=== PATIENT | male | born 1980 | race Caucasian/White ===

== ENCOUNTER 2016-09-23 12:24 | Outpatient (CLI) | payer OTHER ==
[~2016-09-23] VITALS: Ht 175.3 cm; Wt 70.0 kg
[~2016-09-23 12:24] MED LIST: /MOXI40TA OR; ACET500C OR; ACET65TA OR; ASACOL OR; CIPR25SS OR; CIPR500T4 OR; CLIN300C OR; COLA100C2 OR; COLA100C2 PO; DIFL50TA OR; EC-N500T OR; FERR325T OR; FLAG500T OR; PERC5TAB8 OR; PERC5TAB8 PO; PERC7.5T8 OR; PERC7.5T8 PO; PRED20TA OR; TETR250C OR; VITAMIN C PO; diphenhydrAMINE 25 MG CAP PO SCH
[2016-09-23] MEDS ORDERED: NS 1,000 ML IV SCH (12:45)
[2016-09-23] MEDS ORDERED: inFLIXimab INJECTION 400 MG in NS 210 ML IV ONE (13:00)
== END 2016-09-23 15:25 | disposition home or self-care (01) ==
LOC: M INFU 12:24
PROVIDERS: ATTEND Internal Medicine Gastroenterology
DX: K50.80 Crohn's disease of both small and large intestine without complications (principal); F17.200 Nicotine dependence, unspecified, uncomplicated; Z88.5 Allergy status to narcotic agent; Z88.8 Allergy status to other drugs, medicaments and biological substances
CPT/HCPCS: 96413; 96415; J1745

== ENCOUNTER 2016-11-13 10:53 | Outpatient (CLI) | payer OTHER ==
[~2016-11-13 10:53] MED LIST changes: -diphenhydrAMINE 25 MG CAP PO SCH
[2016-11-13] MEDS ORDERED: NS 1,000 ML IV SCH (11:00)
[2016-11-13] MEDS ORDERED: diphenhydrAMINE 25 MG CAP PO ONE (11:15)
[2016-11-13] MEDS ORDERED: inFLIXimab INJECTION 400 MG in NS 210 ML IV ONE (12:00)
== END 2016-11-13 13:45 | disposition home or self-care (01) ==
LOC: M INFU 10:53
PROVIDERS: ATTEND Internal Medicine Gastroenterology
DX: K50.00 Crohn's disease of small intestine without complications (principal)
CPT/HCPCS: 96413; 96415; J1745

== ENCOUNTER 2017-01-15 12:18 | Outpatient (CLI) | payer OTHER ==
[~2017-01-15 12:18] MED LIST changes: +diphenhydrAMINE 25 MG CAP PO SCH
[2017-01-15] MEDS ORDERED: NS 1,000 ML IV SCH (12:30)
[2017-01-15] MEDS ORDERED: inFLIXimab INJECTION 400 MG in NS 210 ML IV ONE (13:00)
== END 2017-01-15 15:00 | disposition home or self-care (01) ==
LOC: M INFU 12:18
PROVIDERS: ATTEND Internal Medicine Gastroenterology
DX: K50.80 Crohn's disease of both small and large intestine without complications (principal); Z72.0 Tobacco use; Z88.5 Allergy status to narcotic agent; Z88.3 Allergy status to other anti-infective agents
CPT/HCPCS: 96413; 96415; J1745

== ENCOUNTER → 2017-01-21 | Outpatient (REF) | payer OTHER ==
[~2017-01-21] MED LIST changes: -diphenhydrAMINE 25 MG CAP PO SCH
[2017-01-21 16:05] LABS: BASO % 0.2 % (0.0-1.0); EOS # 0.1 K/mm3 (0.0-0.50); EOS % 1.5 % (0.0-3.0); LYMPH # 2.7 K/mm3 (1.5-4.5); LYMPH % 25.5 % (24.0-44.0); MEAN CORPUSCULAR HEMOGLOBIN 31.5 pg (27.0-33.0); MEAN CORPUSCULAR VOLUME 95.4 fl (80.0-96.0); MONO # 0.6 K/mm3 (0.0-0.8); MONO % 6.4 % (0.0-5.0); NEUTROPHILS # 6.1 K/mm3 (1.8-7.7); NEUTROPHILS % 64.2 % (36.0-66.0); RED CELL DISTRIBUTION WIDTH 13.4 % (11.5-14.5); WHITE BLOOD COUNT 9.5 K/mm3 (4.0-10.0)
[2017-01-21 16:08] LABS: ALBUMIN 3.9 GM/DL (3.2-5.2); ALBUMIN/GLOBULIN RATIO 1.08 (1.00-1.93); ALKALINE PHOSPHATASE 109 U/L (45-117); ALT/SGPT 33 U/L (12-78); AST/SGOT 22 U/L (15-37); BILIRUBIN,DIRECT 0.1 MG/DL (0.0-0.2); BILIRUBIN,TOTAL 0.5 MG/DL (0.2-1.0); BLOOD UREA NITROGEN 13 MG/DL (7-18); CREATININE FOR GFR 1.03 MG/DL (0.70-1.30); GLOMERULAR FILTRATION RATE > 60.0 (>60); TOTAL PROTEIN 7.5 GM/DL (6.4-8.2)
== END ==
LOC: M LABDRWSH 15:32
PROVIDERS: ATTEND Internal Medicine Gastroenterology
DX: K50.80 Crohn's disease of both small and large intestine without complications (principal)

== ENCOUNTER 2017-03-11 12:29 | Outpatient (CLI) | payer OTHER ==
[~2017-03-11 12:29] MED LIST changes: +diphenhydrAMINE 25 MG CAP PO SCH
[2017-03-11] MEDS ORDERED: NS 1,000 ML IV SCH (13:30)
[2017-03-11] MEDS ORDERED: inFLIXimab INJECTION 400 MG in NS 210 ML IV ONE (13:30)
== END 2017-03-11 15:15 | disposition home or self-care (01) ==
LOC: M INFU 12:29
PROVIDERS: ATTEND Internal Medicine Gastroenterology
DX: K50.80 Crohn's disease of both small and large intestine without complications (principal); F17.210 Nicotine dependence, cigarettes, uncomplicated; Z88.5 Allergy status to narcotic agent

== ENCOUNTER 2017-05-07 07:05 | Outpatient (CLI) | payer OTHER ==
[~2017-05-07] VITALS: Ht 175.3 cm; Wt 64.0 kg
[2017-05-07] MEDS ORDERED: NS 1,000 ML IV SCH (08:00)
[2017-05-07] MEDS ORDERED: inFLIXimab INJECTION 400 MG in NS 210 ML IV ONE (08:00)
== END 2017-05-07 09:45 | disposition home or self-care (01) ==
LOC: M INFU 07:05
PROVIDERS: ATTEND Internal Medicine Gastroenterology
DX: K50.80 Crohn's disease of both small and large intestine without complications (principal); Z72.0 Tobacco use; Z88.5 Allergy status to narcotic agent
CPT/HCPCS: 96413; 96415; J1745

== ENCOUNTER → 2017-06-11 | Outpatient (CLI) | payer OTHER ==
[~2017-06-11] MED LIST changes: +E-Z-GAS II EFFERVESCENT PACKET (SODIUM BICARB./CITRIC ACID/SIMETHICONE) As Ordered ONE; +E-Z-HD 98% w/w 340GM SUSP BTL As Ordered ONE; +E-Z-PAQUE 96% w/w SUSP 176GM BTL As Ordered ONE; -diphenhydrAMINE 25 MG CAP PO SCH
--- NOTE | 2017-06-11 17:24 | REP ---
UPPER GI WITH SMALL BOWEL FOLLOW THROUGH: The procedure was performed by TRINIDAD Thurston under the direct supervision of the Dr. Cardoso. All imaging was reviewed with Dr. Cardoso prior to dictation. The elementary instructional coach film showed surgical clips in the left upper quadrant and right flank area. The patient was able to ingest liquid barium and air in a quantity sufficient to produce a double contrast examination. The oral and pharyngeal stages of deglutition appeared unremarkable. Esophageal transport was prompt and efficient. There was no evidence of esophagitis, stricture, mucosal ring or hiatal hernia. Gastroesophageal reflux was not observed on this examination. The stomach canchola were normally outlined. The rugal folds were smooth and regular. There was no evidence of gastritis, neoplasm or ulcerative disease. The duodenal acnchola were normally outlined. Limited evaluation of the duodenal bulb due to limited air filled bulb views. No ulcerations were appreciated. The visualized portion of the proximal small bowel was normal in course and caliber. Additional liquid barium was given at the end of the examination in order to perform a small bowel follow through. During fluoroscopy, gentle palpation of the small bowel loops showed them to be freely movable and pliable without evidence of a fixed or angulated loop. The small bowel mucosal pattern was normal in course and caliber. There was no transition to suggest a partial small bowel obstruction. Spot filming of the terminal ileum showed it to be within normal limits. IMPRESSION: Unremarkable double contrast upper GI examination and small bowel follow through. Fluoroscopy time was 3 minutes and 34 seconds. Reviewed by TRINIDAD Cunningham 06/12/2017 08:50 AEdited and Signed by Ulysses Cardoso MD 06/12/2017 05:11 P
== END ==
LOC: M RAD 09:44
PROVIDERS: ATTEND Internal Medicine Gastroenterology
DX: K50.80 Crohn's disease of both small and large intestine without complications (principal)

== ENCOUNTER 2017-09-03 10:58 | Outpatient (CLI) | payer OTHER ==
[~2017-09-03 10:58] MED LIST changes: -E-Z-GAS II EFFERVESCENT PACKET (SODIUM BICARB./CITRIC ACID/SIMETHICONE) As Ordered ONE; -E-Z-HD 98% w/w 340GM SUSP BTL As Ordered ONE; -E-Z-PAQUE 96% w/w SUSP 176GM BTL As Ordered ONE
[2017-09-03] MEDS ORDERED: NS 1,000 ML IV SCH (11:15)
[2017-09-03] MEDS ORDERED: diphenhydrAMINE 25 MG CAP PO ONE (11:15)
[2017-09-03] MEDS ORDERED: ACETAMINOPHEN TAB 650MG DOSE (2X325MG) PO ONE (11:15)
[2017-09-03] MEDS ORDERED: INFLIXIMAB BIOSIMILAR 400 MG in NS 210 ML IV ONE (11:15)
== END 2017-09-03 13:50 | disposition home or self-care (01) ==
LOC: M INFU 10:58
PROVIDERS: ATTEND Internal Medicine Gastroenterology
DX: K50.813 Crohn's disease of both small and large intestine with fistula (principal); F17.210 Nicotine dependence, cigarettes, uncomplicated
CPT/HCPCS: 96413; 96415; Q5102

== ENCOUNTER 2017-10-29 10:56 | Outpatient (CLI) | payer OTHER ==
[2017-10-29] MEDS: diphenhydrAMINE 25 MG CAP PO (11:22)
[2017-10-29] MEDS: ACETAMINOPHEN TAB 650MG DOSE (2X325MG) PO (11:23)
[2017-10-29] MEDS: NS 1,000 ML IV (11:23)
[2017-10-29] MEDS: INFLIXIMAB BIOSIMILAR 400 MG in NS 210 ML IV (11:49)
== END 2017-10-29 14:00 | disposition home or self-care (01) ==
LOC: M INFU 10:56
DX: K50.80 Crohn's disease of both small and large intestine without complications (principal); Z88.5 Allergy status to narcotic agent
CPT/HCPCS: Q5102

== ENCOUNTER 2017-12-24 10:53 | Outpatient (CLI) | payer OTHER ==
[2017-12-24] MEDS: ACETAMINOPHEN TAB 650MG DOSE (2X325MG) PO (11:21)
[2017-12-24] MEDS: diphenhydrAMINE 25 MG CAP PO (11:21)
[2017-12-24] MEDS: NS 1,000 ML IV (11:22)
[2017-12-24] MEDS: INFLIXIMAB BIOSIMILAR 400 MG in NS 210 ML IV (11:49)
== END 2017-12-24 14:05 | disposition home or self-care (01) ==
LOC: M INFU 10:53
DX: K50.80 Crohn's disease of both small and large intestine without complications (principal)
CPT/HCPCS: Q5103

== ENCOUNTER → 2017-12-25 | Outpatient (REF) | payer OTHER ==
[2017-12-25 15:11] LABS: BASO % 0.4 % (0.0-1.0); EOS # 0.7 10^3/uL (0.0-0.50); EOS % 7.3 % (0.0-3.0); HEMATOCRIT 42.4 % (42.0-52.0); HEMOGLOBIN 14.5 g/dl (13.5-17.5); IMMATURE GRANULOCYTE % 0.2 % (0-3.0); LYMPH # 3.4 10^3/uL (1.5-4.5); LYMPH % 35.5 % (24.0-44.0); MEAN CORPUSCULAR HEMOGLOBIN 31.7 pg (27.0-33.0); MEAN CORPUSCULAR HGB CONC 34.2 g/dl (32.0-36.5); MEAN CORPUSCULAR VOLUME 92.6 fl (80.0-96.0); NEUTROPHILS # 4.4 10^3/uL (1.8-7.7); NEUTROPHILS % 46.6 % (36.0-66.0); PLATELET COUNT, AUTOMATED 402 10^3/uL (150-450); RED BLOOD COUNT 4.58 10^6/uL (4.30-6.10); RED CELL DISTRIBUTION WIDTH 14.8 % (11.5-14.5); WHITE BLOOD COUNT 9.5 10^3/uL (4.0-10.0)
[2017-12-25 15:25] LABS: ALBUMIN 3.5 GM/DL (3.2-5.2); ALKALINE PHOSPHATASE 111 U/L (45-117); ALT/SGPT 42 U/L (12-78); ANION GAP 7 MEQ/L (8-16); AST/SGOT 24 U/L (7-37); BILIRUBIN,TOTAL 0.3 MG/DL (0.2-1.0); BLOOD UREA NITROGEN 9 MG/DL (7-18); CALCIUM LEVEL 8.7 MG/DL (8.5-10.1); CARBON DIOXIDE LEVEL 27 MEQ/L (21-32); CHLORIDE LEVEL 108 MEQ/L (98-107); CHOLESTEROL LEVEL 193 MG/DL (<200); CHOLESTEROL RISK RATIO 3.711 (<5); CREATININE FOR GFR 0.88 MG/DL (0.70-1.30); FREE T4 0.72 NG/DL (0.76-1.46); GLOMERULAR FILTRATION RATE > 60.0 (>60); GLUCOSE, FASTING 96 MG/DL (70-100); HDL CHOLESTEROL 52 MG/DL (>40); NON-HDL-C 141 MG/DL; POTASSIUM SERUM 4.5 MEQ/L (3.5-5.1); SODIUM LEVEL 142 MEQ/L (136-145); TOTAL PROTEIN 7.4 GM/DL (6.4-8.2); TRIGLYCERIDES LEVEL 150 MG/DL (<150)
[2017-12-25 15:34] LABS: TOTAL 25(OH) VITAMIN D 7.9 NG/ML (30.0-100.0)
== END ==
LOC: M SFHCSACK 09:46
DX: K50.90 Crohn's disease, unspecified, without complications (principal); Z13.220 Encounter for screening for lipoid disorders; Z13.29 Encounter for screening for other suspected endocrine disorder; Z13.21 Encounter for screening for nutritional disorder
CPT/HCPCS: 84443

== ENCOUNTER → 2018-04-02 | Outpatient (REF) | payer OTHER ==
[2018-04-02 15:59] LABS: BASO % 0.4 % (0.0-1.0); EOS # 0.3 10^3/uL (0.0-0.50); EOS % 3.4 % (0.0-3.0); HEMATOCRIT 45.1 % (42.0-52.0); HEMOGLOBIN 15.8 g/dl (13.5-17.5); IMMATURE GRANULOCYTE % 0.3 % (0-3.0); LYMPH # 2.2 10^3/uL (1.5-4.5); LYMPH % 27.9 % (24.0-44.0); MEAN CORPUSCULAR HEMOGLOBIN 32.5 pg (27.0-33.0); MEAN CORPUSCULAR VOLUME 92.8 fl (80.0-96.0); MONO # 0.6 10^3/uL (0.0-0.8); MONO % 8.3 % (0.0-5.0); NEUTROPHILS # 4.6 10^3/uL (1.8-7.7); NEUTROPHILS % 59.7 % (36.0-66.0); PLATELET COUNT, AUTOMATED 395 10^3/uL (150-450); RED BLOOD COUNT 4.86 10^6/uL (4.30-6.10); RED CELL DISTRIBUTION WIDTH 14.7 % (11.5-14.5); WHITE BLOOD COUNT 7.7 10^3/uL (4.0-10.0)
[2018-04-02 16:23] LABS: ALBUMIN 3.6 GM/DL (3.2-5.2); ALBUMIN/GLOBULIN RATIO 0.88 (1.00-1.93); ALKALINE PHOSPHATASE 128 U/L (45-117); ALT/SGPT 44 U/L (12-78); AST/SGOT 25 U/L (7-37); BILIRUBIN,DIRECT 0.1 MG/DL (0.0-0.2); BILIRUBIN,TOTAL 0.4 MG/DL (0.2-1.0); BLOOD UREA NITROGEN 11 MG/DL (7-18); C REACTIVE PROTEIN QUANTITATIV < 0.30 MG/DL (0.00-0.30); CREATININE FOR GFR 1.14 MG/DL (0.70-1.30); GLOMERULAR FILTRATION RATE > 60.0 (>60); TOTAL PROTEIN 7.7 GM/DL (6.4-8.2)
== END ==
LOC: M LABDRAWP 14:05
DX: K50.80 Crohn's disease of both small and large intestine without complications (principal)
CPT/HCPCS: 86140

== ENCOUNTER → 2018-04-02 | Outpatient (REF) | payer OTHER ==
[2018-04-02 15:59] LABS: BASO % 0.3 % (0.0-1.0); EOS # 0.3 10^3/uL (0.0-0.50); EOS % 3.3 % (0.0-3.0); HEMATOCRIT 46.8 % (42.0-52.0); IMMATURE GRANULOCYTE % 0.3 % (0-3.0); LYMPH # 2.1 10^3/uL (1.5-4.5); LYMPH % 25.9 % (24.0-44.0); MEAN CORPUSCULAR HEMOGLOBIN 32.4 pg (27.0-33.0); MEAN CORPUSCULAR HGB CONC 34.2 g/dl (32.0-36.5); MEAN CORPUSCULAR VOLUME 94.7 fl (80.0-96.0); MONO # 0.8 10^3/uL (0.0-0.8); MONO % 10.4 % (0.0-5.0); NEUTROPHILS # 4.7 10^3/uL (1.8-7.7); NEUTROPHILS % 59.8 % (36.0-66.0); PLATELET COUNT, AUTOMATED 397 10^3/uL (150-450); RED BLOOD COUNT 4.94 10^6/uL (4.30-6.10); RED CELL DISTRIBUTION WIDTH 14.6 % (11.5-14.5); WHITE BLOOD COUNT 7.9 10^3/uL (4.0-10.0)
[2018-04-02 16:29] LABS: TOTAL 25(OH) VITAMIN D 72.3 NG/ML (30.0-100.0)
[2018-04-02 16:31] LABS: ALBUMIN 3.6 GM/DL (3.2-5.2); ALBUMIN/GLOBULIN RATIO 0.88 (1.00-1.93); ALKALINE PHOSPHATASE 123 U/L (45-117); ALT/SGPT 46 U/L (12-78); ANION GAP 9 MEQ/L (8-16); AST/SGOT 28 U/L (7-37); BILIRUBIN,TOTAL 0.4 MG/DL (0.2-1.0); BLOOD UREA NITROGEN 12 MG/DL (7-18); CALCIUM LEVEL 9.2 MG/DL (8.5-10.1); CARBON DIOXIDE LEVEL 26 MEQ/L (21-32); CHLORIDE LEVEL 104 MEQ/L (98-107); CREATININE FOR GFR 1.18 MG/DL (0.70-1.30); GLOMERULAR FILTRATION RATE > 60.0 (>60); GLUCOSE, FASTING 163 MG/DL (70-100); POTASSIUM SERUM 3.8 MEQ/L (3.5-5.1); SODIUM LEVEL 139 MEQ/L (136-145); TOTAL PROTEIN 7.7 GM/DL (6.4-8.2)
== END ==
LOC: M SFHCSACK 13:51
DX: E55.9 Vitamin D deficiency, unspecified (principal); E78.00 Pure hypercholesterolemia, unspecified; Z13.29 Encounter for screening for other suspected endocrine disorder
CPT/HCPCS: 84443

== ENCOUNTER 2018-04-15 12:34 | Outpatient (CLI) | payer OTHER ==
[2018-04-15] MEDS: ACETAMINOPHEN TAB 650MG DOSE (2X325MG) PO (13:06)
[2018-04-15] MEDS: diphenhydrAMINE 25 MG CAP PO (13:07)
[2018-04-15] MEDS: FILTER 1.2 MICRON (ADULT TPN/MANNITOL/REMICADE) XX (13:08)
[2018-04-15] MEDS: NS 1,000 ML IV (13:08)
[2018-04-15] MEDS: INFLIXIMAB BIOSIMILAR 400 MG in NS 210 ML IV (13:25)
== END 2018-04-15 15:40 | disposition home or self-care (01) ==
LOC: M INFU 12:34
DX: K50.80 Crohn's disease of both small and large intestine without complications (principal); Z88.5 Allergy status to narcotic agent
CPT/HCPCS: Q5103

== ENCOUNTER 2018-06-22 15:25 | Outpatient (CLI) | payer OTHER ==
[2018-06-22] MEDS: diphenhydrAMINE 25 MG CAP PO (15:43)
[2018-06-22] MEDS: ACETAMINOPHEN TAB 650MG DOSE (2X325MG) PO (15:44)
[2018-06-22] MEDS: FILTER 1.2 MICRON (ADULT TPN/MANNITOL/REMICADE) XX (15:44)
[2018-06-22] MEDS: NS 1,000 ML IV (16:00)
[2018-06-22] MEDS: INFLIXIMAB BIOSIMILAR 400 MG in NS 210 ML IV (16:00)
== END 2018-06-22 18:30 | disposition home or self-care (01) ==
LOC: M INFU 15:25
DX: K50.80 Crohn's disease of both small and large intestine without complications (principal); Z88.5 Allergy status to narcotic agent
CPT/HCPCS: Q5103

== ENCOUNTER 2018-08-17 12:28 | Outpatient (CLI) | payer SELFPAY, MEDICAID, OTHER ==
[2018-08-17] MEDS: diphenhydrAMINE 25MG PO PRIOR TO INFUSION PO (12:43)
[2018-08-17] MEDS: ACETAMINOPHEN 650MG PO PRIOR TO INFUSION PO (12:43)
[2018-08-17] MEDS: INFLIXIMAB BIOSIMILAR 400 MG in NS 210 ML IV (12:49)
[2018-08-17] MEDS: NS 1,000 ML IV (12:50)
[2018-08-17] MEDS: FILTER 1.2 MICRON (ADULT TPN/MANNITOL/REMICADE) XX (12:50)
== END 2018-08-17 15:30 | disposition home or self-care (01) ==
LOC: M INFU 12:28
DX: K50.10 Crohn's disease of large intestine without complications (principal); K50.00 Crohn's disease of small intestine without complications; I10 Essential (primary) hypertension
CPT/HCPCS: Q5103

== ENCOUNTER 2018-10-12 12:25 | Outpatient (CLI) | payer OTHER, SELFPAY ==
[2018-10-12] VITALS (8 sets, daily range): BP systolic 113–148; BP diastolic 72–84
[~2018-10-12] VITALS: Ht 175.3 cm; Wt 64.0 kg
[2018-10-12] MEDS ORDERED: NS 1,000 ML IV SCH (12:45)
[2018-10-12] MEDS ORDERED: diphenhydrAMINE 25MG PO PRIOR TO INFUSION PO ONE (12:45)
[2018-10-12] MEDS ORDERED: FILTER 1.2 MICRON (ADULT TPN/MANNITOL/REMICADE) XX ONE (12:45)
[2018-10-12] MEDS ORDERED: ACETAMINOPHEN 650MG PO PRIOR TO INFUSION PO ONE (12:45)
[2018-10-12] MEDS ORDERED: INFLIXIMAB BIOSIMILAR 400 MG in NS 210 ML IV ONE (13:00)
== END 2018-10-12 16:00 | disposition home or self-care (01) ==
LOC: M INFU 12:25
PROVIDERS: ATTEND Internal Medicine Gastroenterology
DX: K50.80 Crohn's disease of both small and large intestine without complications (principal); Z88.5 Allergy status to narcotic agent
CPT/HCPCS: 96413; 96415; Q5103

== ENCOUNTER → 2018-10-19 | Outpatient (CLI) | payer OTHER ==
[2018-10-19 15:02] LABS: HEMOGLOBIN A1c 5.6 %
[2018-10-19 15:09] LABS: BASO % 0.2 % (0.0-1.0); EOS # 0.1 10^3/uL (0.0-0.50); EOS % 2.5 % (0.0-3.0); HEMATOCRIT 46.5 % (42.0-52.0); HEMOGLOBIN 16.4 g/dl (13.5-17.5); LYMPH # 2.7 10^3/uL (1.5-4.5); LYMPH % 51.1 % (24.0-44.0); MEAN CORPUSCULAR HEMOGLOBIN 32.7 pg (27.0-33.0); MEAN CORPUSCULAR HGB CONC 35.3 g/dl (32.0-36.5); MEAN CORPUSCULAR VOLUME 92.8 fl (80.0-96.0); MONO # 0.7 10^3/uL (0.0-0.8); MONO % 13.8 % (0.0-5.0); NEUTROPHILS # 1.7 10^3/uL (1.8-7.7); NEUTROPHILS % 32.2 % (36.0-66.0); PLATELET COUNT, AUTOMATED 386 10^3/uL (150-450); RED BLOOD COUNT 5.01 10^6/uL (4.30-6.10); WHITE BLOOD COUNT 5.2 10^3/uL (4.0-10.0)
[2018-10-19 15:20] LABS: ALBUMIN 3.7 GM/DL (3.2-5.2); ALT/SGPT 30 U/L (12-78); BILIRUBIN,TOTAL 0.3 MG/DL (0.2-1.0); BLOOD UREA NITROGEN 10 MG/DL (7-18); CALCIUM LEVEL 8.7 MG/DL (8.5-10.1); CARBON DIOXIDE LEVEL 26 MEQ/L (21-32); CHLORIDE LEVEL 106 MEQ/L (98-107); CHOLESTEROL LEVEL 144 MG/DL (<200); CHOLESTEROL RISK RATIO 2.938 (<5); CREATININE FOR GFR 0.88 MG/DL (0.70-1.30); GLOMERULAR FILTRATION RATE > 60.0 (>60); GLUCOSE, FASTING 87 MG/DL (70-100); HDL CHOLESTEROL 49 MG/DL (>40); LDL CHOLESTEROL 76 MG/DL (<100); NON-HDL-C 95 MG/DL; POTASSIUM SERUM 4.2 MEQ/L (3.5-5.1); SODIUM LEVEL 139 MEQ/L (136-145); TOTAL 25(OH) VITAMIN D 32.7 NG/ML (30.0-100.0); TOTAL PROTEIN 7.2 GM/DL (6.4-8.2); TRIGLYCERIDES LEVEL 96 MG/DL (<150)
== END ==
LOC: M LAB 14:07
PROVIDERS: ATTEND Physician Assistant
DX: K50.90 Crohn's disease, unspecified, without complications (principal); E78.00 Pure hypercholesterolemia, unspecified; R73.01 Impaired fasting glucose; E55.9 Vitamin D deficiency, unspecified

== ENCOUNTER → 2019-03-11 | Outpatient (CLI) | payer OTHER ==
[~2019-03-11] MED LIST changes: -/MOXI40TA OR; +AVEL1TAB2 OR
[2019-03-11 13:53] LABS: BASO % 0.4 % (0.0-1.0); EOS # 0.3 10^3/uL (0.0-0.50); HEMATOCRIT 45.7 % (42.0-52.0); HEMOGLOBIN 15.7 g/dl (13.5-17.5); LYMPH # 2.5 10^3/uL (1.5-4.5); MEAN CORPUSCULAR HEMOGLOBIN 32.8 pg (27.0-33.0); MEAN CORPUSCULAR HGB CONC 34.4 g/dl (32.0-36.5); MEAN CORPUSCULAR VOLUME 95.6 fl (80.0-96.0); MONO # 0.7 10^3/uL (0.0-0.8); MONO % 8.3 % (0.0-5.0); NEUTROPHILS # 4.8 10^3/uL (1.8-7.7); NEUTROPHILS % 58.1 % (36.0-66.0); PLATELET COUNT, AUTOMATED 389 10^3/uL (150-450); RED BLOOD COUNT 4.78 10^6/uL (4.30-6.10); WHITE BLOOD COUNT 8.3 10^3/uL (4.0-10.0)
[2019-03-11 14:17] LABS: ALBUMIN 3.5 GM/DL (3.2-5.2); ALT/SGPT 35 U/L (12-78); BILIRUBIN,DIRECT 0.1 MG/DL (0.0-0.2); BILIRUBIN,TOTAL 0.3 MG/DL (0.2-1.0); BLOOD UREA NITROGEN 10 MG/DL (7-18); C REACTIVE PROTEIN QUANTITATIV < 0.30 MG/DL (0.00-0.30); CREATININE FOR GFR 0.95 MG/DL (0.70-1.30); GLOMERULAR FILTRATION RATE > 60.0 (>60); TOTAL PROTEIN 7.4 GM/DL (6.4-8.2)
== END ==
LOC: M LAB 13:20
PROVIDERS: ATTEND Internal Medicine Gastroenterology
DX: K50.80 Crohn's disease of both small and large intestine without complications (principal)

== ENCOUNTER 2019-07-19 11:54 | Outpatient (CLI) | payer OTHER ==
[2019-07-19] VITALS (7 sets, daily range): BP systolic 116–136; BP diastolic 65–83
[~2019-07-19] VITALS: Ht 175.3 cm; Wt 64.0 kg
[~2019-07-19 11:54] MED LIST changes: +INFL10VL IV
[2019-07-19] MEDS ORDERED: NS 1,000 ML IV SCH (12:00)
[2019-07-19] MEDS ORDERED: inFLIXimab INJECTION 400 MG in NS 210 ML IV ONE (12:00)
[2019-07-19] MEDS ORDERED: diphenhydrAMINE 25MG PO PRIOR TO INFUSION PO ONE (12:00)
[2019-07-19] MEDS ORDERED: ACETAMINOPHEN 650MG PO PRIOR TO INFUSION PO ONE (12:00)
[2019-07-19] MEDS ORDERED: FILTER 1.2 MICRON (ADULT TPN/MANNITOL/REMICADE) XX ONE (12:00)
[2019-07-19] MEDS ORDERED: INFLIXIMAB BIOSIMILAR 400 MG in NS 210 ML IV SCH (12:15)
== END 2019-07-19 15:15 | disposition home or self-care (01) ==
LOC: M INFU 11:54
PROVIDERS: ATTEND Internal Medicine Gastroenterology
DX: K50.80 Crohn's disease of both small and large intestine without complications (principal)
CPT/HCPCS: 96413; 96415; Q5103

== ENCOUNTER → 2019-10-19 | Outpatient (CLI) | payer OTHER ==
[2019-10-19 14:28] LABS: BASO % 0.3 % (0.0-1.0); EOS # 0.4 10^3/uL (0.0-0.5); EOS % 3.2 % (0.0-3.0); HEMATOCRIT 47.7 % (42.0-52.0); HEMOGLOBIN 15.8 g/dl (13.5-17.5); LYMPH # 4.4 10^3/uL (1.5-5.0); LYMPH % 37.1 % (24.0-44.0); MEAN CORPUSCULAR HGB CONC 33.1 g/dl (32.0-36.5); MEAN CORPUSCULAR VOLUME 96.6 fl (80.0-96.0); MONO # 1.1 10^3/uL (0.0-0.8); MONO % 9.3 % (0.0-5.0); NEUTROPHILS # 5.9 10^3/uL (1.5-8.5); NEUTROPHILS % 49.8 % (36.0-66.0); PLATELET COUNT, AUTOMATED 421 10^3/uL (150-450); RED BLOOD COUNT 4.94 10^6/uL (4.30-6.10); WHITE BLOOD COUNT 11.9 10^3/uL (4.0-10.0)
[2019-10-19 14:41] LABS: ALBUMIN 3.7 GM/DL (3.2-5.2); ALT/SGPT 50 U/L (12-78); BILIRUBIN,DIRECT 0.2 MG/DL (0.0-0.2); BILIRUBIN,TOTAL 0.8 MG/DL (0.2-1.0); BLOOD UREA NITROGEN 14 MG/DL (7-18); C REACTIVE PROTEIN QUANTITATIV < 0.30 MG/DL (0.00-0.30); CREATININE FOR GFR 0.97 MG/DL (0.70-1.30); GLOMERULAR FILTRATION RATE > 60.0 (>60); TOTAL PROTEIN 7.4 GM/DL (6.4-8.2)
== END ==
LOC: M SFHCSACK 08:25
PROVIDERS: ATTEND Family Medicine
DX: K50.90 Crohn's disease, unspecified, without complications (principal); R73.01 Impaired fasting glucose; E78.00 Pure hypercholesterolemia, unspecified; E55.9 Vitamin D deficiency, unspecified

== ENCOUNTER → 2019-10-19 | Outpatient (REF) | payer OTHER ==
[2019-10-19 14:18] LABS: BASO # 0.1 10^3/uL (0.0-0.2); BASO % 0.4 % (0.0-1.0); EOS # 0.4 10^3/uL (0.0-0.5); EOS % 3.4 % (0.0-3.0); HEMATOCRIT 48.3 % (42.0-52.0); HEMOGLOBIN 15.9 g/dl (13.5-17.5); LYMPH # 4.4 10^3/uL (1.5-5.0); LYMPH % 36.5 % (24.0-44.0); MEAN CORPUSCULAR HEMOGLOBIN 31.7 pg (27.0-33.0); MEAN CORPUSCULAR HGB CONC 32.9 g/dl (32.0-36.5); MEAN CORPUSCULAR VOLUME 96.4 fl (80.0-96.0); MONO # 1.2 10^3/uL (0.0-0.8); MONO % 9.5 % (0.0-5.0); NEUTROPHILS # 6.1 10^3/uL (1.5-8.5); PLATELET COUNT, AUTOMATED 420 10^3/uL (150-450); RED BLOOD COUNT 5.01 10^6/uL (4.30-6.10); WHITE BLOOD COUNT 12.2 10^3/uL (4.0-10.0)
[2019-10-19 14:46] LABS: ALBUMIN 3.6 GM/DL (3.2-5.2); ALT/SGPT 49 U/L (12-78); BILIRUBIN,TOTAL 0.6 MG/DL (0.2-1.0); BLOOD UREA NITROGEN 14 MG/DL (7-18); CALCIUM LEVEL 8.8 MG/DL (8.5-10.1); CARBON DIOXIDE LEVEL 25 MEQ/L (21-32); CHLORIDE LEVEL 106 MEQ/L (98-107); CHOLESTEROL LEVEL 221 MG/DL (<200); CHOLESTEROL RISK RATIO 4.018 (<5); CREATININE FOR GFR 0.99 MG/DL (0.70-1.30); GLOMERULAR FILTRATION RATE > 60.0 (>60); GLUCOSE, FASTING 82 MG/DL (70-100); HDL CHOLESTEROL 55 MG/DL (>40); LDL CHOLESTEROL 118 MG/DL (<100); NON-HDL-C 166 MG/DL; POTASSIUM SERUM 4.2 MEQ/L (3.5-5.1); SODIUM LEVEL 139 MEQ/L (136-145); TOTAL 25(OH) VITAMIN D 20.3 NG/ML (30.0-100.0); TOTAL PROTEIN 7.2 GM/DL (6.4-8.2); TRIGLYCERIDES LEVEL 238 MG/DL (<150)
== END ==
LOC: M SFHCSACK 08:11
PROVIDERS: ATTEND Physician Assistant
DX: K50.90 Crohn's disease, unspecified, without complications (principal); R73.01 Impaired fasting glucose; E78.00 Pure hypercholesterolemia, unspecified; E55.9 Vitamin D deficiency, unspecified

== ENCOUNTER 2019-11-10 11:53 | Outpatient (CLI) | payer OTHER ==
[~2019-11-10] VITALS: Ht 175.3 cm; Wt 64.0 kg
[2019-11-10 12:00] VITALS: BP 146/73
[2019-11-10] MEDS ORDERED: INFLIXIMAB BIOSIMILAR 400 MG in NS 210 ML IV ONE (13:00)
[2019-11-10] MEDS ORDERED: ACETAMINOPHEN 650MG PO PRIOR TO INFUSION PO ONE (13:00)
[2019-11-10] MEDS ORDERED: diphenhydrAMINE 25MG PO PRIOR TO INFUSION PO ONE (13:00)
[2019-11-10] MEDS ORDERED: NS 1,000 ML IV SCH (13:00)
== END 2019-11-10 14:50 | disposition home or self-care (01) ==
LOC: M INFU 11:53
PROVIDERS: ATTEND Internal Medicine Gastroenterology
DX: K50.00 Crohn's disease of small intestine without complications (principal); K50.90 Crohn's disease, unspecified, without complications; Z88.5 Allergy status to narcotic agent
CPT/HCPCS: 96365; 96366; Q5103

== ENCOUNTER 2020-01-10 09:52 | Outpatient (CLI) | payer OTHER ==
[~2020-01-10] VITALS: Ht 175.3 cm; Wt 64.0 kg
[2020-01-10] MEDS ORDERED: INFLIXIMAB BIOSIMILAR 400 MG in NS 210 ML IV ONE (10:00)
[2020-01-10] MEDS ORDERED: diphenhydrAMINE 25MG PO PRIOR TO INFUSION PO ONE (10:00)
[2020-01-10] MEDS ORDERED: ACETAMINOPHEN 650MG PO PRIOR TO INFUSION PO ONE (10:00)
[2020-01-10] MEDS ORDERED: NS 1,000 ML IV SCH (10:00)
[2020-01-10 10:20] VITALS: BP 127/82
[2020-01-10 10:50] VITALS: BP 127/68
[2020-01-10 11:05] VITALS: BP 116/77
[2020-01-10 11:20] VITALS: BP 129/81
[2020-01-10 11:50] VITALS: BP 141/63
[2020-01-10 12:20] VITALS: BP 127/76
== END 2020-01-10 12:35 | disposition home or self-care (01) ==
LOC: M INFU 09:52
PROVIDERS: ATTEND Internal Medicine Gastroenterology
DX: K50.90 Crohn's disease, unspecified, without complications (principal); Z88.5 Allergy status to narcotic agent
CPT/HCPCS: 96413; 96415; Q5103

== ENCOUNTER 2020-03-06 12:59 | Outpatient (CLI) | payer OTHER ==
[~2020-03-06] VITALS: Ht 175.3 cm; Wt 64.0 kg
[2020-03-06] MEDS ORDERED: diphenhydrAMINE 25MG PO PRIOR TO INFUSION PO ONE (13:15)
[2020-03-06] MEDS ORDERED: INFLIXIMAB BIOSIMILAR 400 MG in NS 210 ML IV ONE (13:15)
[2020-03-06] MEDS ORDERED: NS 1,000 ML IV SCH (13:15)
[2020-03-06] MEDS ORDERED: ACETAMINOPHEN 650MG PO PRIOR TO INFUSION PO ONE (13:15)
[2020-03-06 13:35] VITALS: BP 127/81
[2020-03-06 13:52] VITALS: BP 111/67
[2020-03-06 14:20] VITALS: BP 117/80
[2020-03-06 14:35] VITALS: BP 114/73
[2020-03-06 15:05] VITALS: BP 112/73
[2020-03-06 15:50] VITALS: BP 121/69
== END 2020-03-06 15:50 | disposition home or self-care (01) ==
LOC: M INFU 12:59
PROVIDERS: ATTEND Internal Medicine Gastroenterology
DX: K50.813 Crohn's disease of both small and large intestine with fistula (principal); Z88.5 Allergy status to narcotic agent
CPT/HCPCS: 96413; 96415; Q5103

== ENCOUNTER 2020-05-01 13:00 | Outpatient (CLI) | payer OTHER ==
[~2020-05-01 13:00] MED LIST changes: +inFLIXimab-DYYB 100MG 10ML VIAL (INFLECTRA-PFIZER) ONE
[2020-05-01] MEDS ORDERED: diphenhydrAMINE 25MG CAP As Ordered ONE (13:42)
== END 2020-05-01 16:00 | disposition home or self-care (01) ==
LOC: M INFU 13:00
PROVIDERS: ATTEND Internal Medicine Gastroenterology
DX: K50.80 Crohn's disease of both small and large intestine without complications (principal)
CPT/HCPCS: 96413; 96415; Q5103

== ENCOUNTER → 2020-05-22 | Outpatient (REF) | payer OTHER ==
[~2020-05-22] MED LIST changes: -inFLIXimab-DYYB 100MG 10ML VIAL (INFLECTRA-PFIZER) ONE
[2020-05-22 14:54] LABS: BASO % 0.4 % (0.0-1.0); EOS # 0.3 10^3/uL (0.0-0.5); EOS % 3.3 % (0.0-3.0); HEMATOCRIT 49.9 % (42.0-52.0); LYMPH # 2.4 10^3/uL (1.5-5.0); MEAN CORPUSCULAR HEMOGLOBIN 32.5 pg (27.0-33.0); MEAN CORPUSCULAR HGB CONC 34.1 g/dl (32.0-36.5); MEAN CORPUSCULAR VOLUME 95.4 fl (80.0-96.0); MONO # 0.8 10^3/uL (0.0-0.8); MONO % 9.3 % (0.0-5.0); NEUTROPHILS # 4.7 10^3/uL (1.5-8.5); NEUTROPHILS % 57.6 % (36.0-66.0); PLATELET COUNT, AUTOMATED 419 10^3/uL (150-450); RED BLOOD COUNT 5.23 10^6/uL (4.30-6.10); WHITE BLOOD COUNT 8.2 10^3/uL (4.0-10.0)
[2020-05-22 14:59] LABS: ALBUMIN 3.6 GM/DL (3.2-5.2); ALT/SGPT 31 U/L (12-78); BILIRUBIN,DIRECT 0.1 MG/DL (0.0-0.2); BILIRUBIN,TOTAL 0.4 MG/DL (0.2-1.0); BLOOD UREA NITROGEN 8 MG/DL (7-18); C REACTIVE PROTEIN QUANTITATIV < 0.30 MG/DL (0.00-0.30); CREATININE FOR GFR 0.94 MG/DL (0.70-1.30); GLOMERULAR FILTRATION RATE > 60.0 (>60); TOTAL PROTEIN 7.6 GM/DL (6.4-8.2)
== END ==
LOC: M PLALAB 11:12
PROVIDERS: ATTEND Internal Medicine Gastroenterology
DX: Z00.00 Encounter for general adult medical examination without abnormal findings (principal)

== ENCOUNTER 2020-06-26 12:49 | Outpatient (CLI) | payer OTHER ==
[2020-06-26] VITALS (7 sets, daily range): BP systolic 119–136; BP diastolic 67–80
[~2020-06-26] VITALS: Ht 175.3 cm; Wt 64.0 kg
[2020-06-26] MEDS: NS 1,000 ML IV SCH (13:00)
[2020-06-26] MEDS: ACETAMINOPHEN 650MG PO PRIOR TO INFUSION PO ONE (13:05)
[2020-06-26] MEDS: diphenhydrAMINE 25MG PO PRIOR TO INFUSION PO ONE (13:07)
[2020-06-26] MEDS: INFLIXIMAB BIOSIMILAR 400 MG in NS 210 ML IV ONE (13:22)
== END 2020-06-26 15:40 | disposition home or self-care (01) ==
LOC: M INFU 12:49
PROVIDERS: ATTEND Internal Medicine Gastroenterology
DX: K50.80 Crohn's disease of both small and large intestine without complications (principal)
CPT/HCPCS: 96413; 96415; Q5103

== ENCOUNTER 2020-08-21 12:58 | Outpatient (CLI) | payer OTHER ==
[2020-08-21] VITALS (7 sets, daily range): BP systolic 129–140; BP diastolic 78–89
[~2020-08-21] VITALS: Ht 175.3 cm; Wt 64.0 kg
[2020-08-21] MEDS ORDERED: diphenhydrAMINE 25MG PO PRIOR TO INFUSION PO ONE (13:00)
[2020-08-21] MEDS ORDERED: ACETAMINOPHEN 650MG PO PRIOR TO INFUSION PO ONE (13:00)
[2020-08-21] MEDS ORDERED: INFLIXIMAB BIOSIMILAR 400 MG in NS 210 ML IV ONE (13:00)
[2020-08-21] MEDS ORDERED: NS 1,000 ML IV SCH (13:00)
== END 2020-08-21 15:45 | disposition home or self-care (01) ==
LOC: M INFU 12:58
PROVIDERS: ATTEND Internal Medicine Gastroenterology
DX: K50.80 Crohn's disease of both small and large intestine without complications (principal); Z88.6 Allergy status to analgesic agent
CPT/HCPCS: 96365; 96366; Q5103

== ENCOUNTER 2020-10-16 12:54 | Outpatient (CLI) | payer OTHER ==
[~2020-10-16] VITALS: Ht 175.3 cm; Wt 64.0 kg
[2020-10-16] MEDS ORDERED: INFLIXIMAB BIOSIMILAR 400 MG in NS 210 ML IV ONE (13:00)
[2020-10-16] MEDS ORDERED: NS 1,000 ML IV SCH (13:00)
[2020-10-16] MEDS ORDERED: diphenhydrAMINE 25MG PO PRIOR TO INFUSION PO ONE (13:00)
[2020-10-16] MEDS ORDERED: ACETAMINOPHEN 650MG PO PRIOR TO INFUSION PO ONE (13:00)
[2020-10-16 13:20] VITALS: BP 145/83
[2020-10-16 13:45] VITALS: BP 143/81
[2020-10-16 14:00] VITALS: BP 137/78
[2020-10-16 14:16] VITALS: BP 129/76
[2020-10-16 14:30] VITALS: BP 123/80
[2020-10-16 15:37] VITALS: BP 126/76
== END 2020-10-16 15:35 | disposition home or self-care (01) ==
LOC: M INFU 12:54
PROVIDERS: ATTEND Internal Medicine Gastroenterology
DX: K50.80 Crohn's disease of both small and large intestine without complications (principal); Z88.6 Allergy status to analgesic agent
CPT/HCPCS: 96365; 96366; Q5103

== ENCOUNTER 2020-12-11 13:01 | Outpatient (CLI) | payer OTHER ==
[~2020-12-11] VITALS: Ht 175.3 cm; Wt 64.0 kg
[~2020-12-11 13:01] MED LIST changes: +ACETAMINOPHEN 650MG PO PRIOR TO INFUSION PO ONE; +INFLIXIMAB BIOSIMILAR 400 MG in NS 210 ML IV ONE; +NS 1,000 ML IV SCH; +diphenhydrAMINE 25MG PO PRIOR TO INFUSION PO ONE
[2020-12-11 13:27] VITALS: BP 132/83
[2020-12-11 13:55] LABS: BASO % 0.3 % (0.0-1.0); EOS # 0.3 10^3/uL (0.0-0.5); EOS % 2.9 % (0.0-3.0); HEMATOCRIT 45.4 % (42.0-52.0); HEMOGLOBIN 15.5 g/dl (13.5-17.5); MEAN CORPUSCULAR HGB CONC 34.1 g/dl (32.0-36.5); MEAN CORPUSCULAR VOLUME 93.8 fl (80.0-96.0); MONO # 0.8 10^3/uL (0.0-0.8); MONO % 9.1 % (2.0-8.0); NEUTROPHILS # 4.7 10^3/uL (1.5-8.5); NEUTROPHILS % 53.4 % (36.0-66.0); PLATELET COUNT, AUTOMATED 379 10^3/uL (150-450); RED BLOOD COUNT 4.84 10^6/uL (4.30-6.10); WHITE BLOOD COUNT 8.9 10^3/uL (4.0-10.0)
[2020-12-11 14:05] VITALS: BP 127/80
[2020-12-11 14:20] VITALS: BP 131/77
[2020-12-11 14:27] LABS: ALBUMIN 3.7 GM/DL (3.2-5.2); ALT/SGPT 38 U/L (12-78); BILIRUBIN,DIRECT 0.1 MG/DL (0.0-0.2); BILIRUBIN,TOTAL 0.4 MG/DL (0.2-1.0); BLOOD UREA NITROGEN 10 MG/DL (7-18); C REACTIVE PROTEIN QUANTITATIV < 0.30 MG/DL (0.00-0.30); CREATININE FOR GFR 0.88 MG/DL (0.70-1.30); GLOMERULAR FILTRATION RATE > 60.0 (>60); TOTAL PROTEIN 7.5 GM/DL (6.4-8.2)
[2020-12-11 15:05] VITALS: BP 124/72
[2020-12-11 15:33] VITALS: BP 126/83
== END 2020-12-11 15:42 | disposition home or self-care (01) ==
LOC: M INFU 13:01
PROVIDERS: ATTEND Internal Medicine Gastroenterology
DX: K50.80 Crohn's disease of both small and large intestine without complications (principal); Z88.8 Allergy status to other drugs, medicaments and biological substances
CPT/HCPCS: 36592; 80076; 82565; 84520; 85025; 86140; 96365; 96366; Q5103

== ENCOUNTER 2021-02-05 12:58 | Outpatient (CLI) | payer OTHER ==
[~2021-02-05] VITALS: Ht 165.1 cm; Wt 64.0 kg
[2021-02-05] VITALS (7 sets, daily range): BP systolic 123–132; BP diastolic 71–81
[~2021-02-05 12:58] MED LIST changes: -ACETAMINOPHEN 650MG PO PRIOR TO INFUSION PO ONE; -INFLIXIMAB BIOSIMILAR 400 MG in NS 210 ML IV ONE; -NS 1,000 ML IV SCH; -diphenhydrAMINE 25MG PO PRIOR TO INFUSION PO ONE
[2021-02-05] MEDS ORDERED: NS 1,000 ML IV SCH (13:00)
[2021-02-05] MEDS ORDERED: inFLIXimab INJECTION 400 MG in NS 210 ML IV ONE (13:00)
[2021-02-05] MEDS ORDERED: ACETAMINOPHEN 650MG PO PRIOR TO INFUSION PO ONE (13:00)
[2021-02-05] MEDS ORDERED: diphenhydrAMINE 25MG PO PRIOR TO INFUSION PO ONE (13:00)
== END 2021-02-05 15:58 | disposition home or self-care (01) ==
LOC: M INFU 12:58
PROVIDERS: ATTEND Internal Medicine Gastroenterology
DX: K50.80 Crohn's disease of both small and large intestine without complications (principal)
CPT/HCPCS: 96413; 96415; J1745

== ENCOUNTER 2021-04-02 13:16 | Outpatient (CLI) | payer OTHER ==
[~2021-04-02] VITALS: Ht 170.2 cm; Wt 64.0 kg
[~2021-04-02 13:16] MED LIST changes: +ACETAMINOPHEN 650MG PO PRIOR TO INFUSION PO ONE; +INFLIXIMAB BIOSIMILAR 400 MG in NS 210 ML IV ONE; +NS 1,000 ML IV SCH; +diphenhydrAMINE 25MG PO PRIOR TO INFUSION PO ONE
[2021-04-02 13:20] VITALS: BP 138/90
[2021-04-02 13:37] VITALS: BP 138/90
[2021-04-02 14:05] VITALS: BP 119/73
[2021-04-02 14:53] VITALS: BP 130/88
== END 2021-04-02 14:55 | disposition home or self-care (01) ==
LOC: M INFU 13:16
PROVIDERS: ATTEND Internal Medicine Gastroenterology
DX: K50.80 Crohn's disease of both small and large intestine without complications (principal); Z88.6 Allergy status to analgesic agent
CPT/HCPCS: 96365; Q5103

== ENCOUNTER → 2021-04-05 | Outpatient (CLI) | payer OTHER ==
[~2021-04-05] MED LIST changes: -ACETAMINOPHEN 650MG PO PRIOR TO INFUSION PO ONE; -INFLIXIMAB BIOSIMILAR 400 MG in NS 210 ML IV ONE; -NS 1,000 ML IV SCH; -diphenhydrAMINE 25MG PO PRIOR TO INFUSION PO ONE
[2021-04-05 16:15] LABS: ALT/SGPT 37 U/L (12-78); BILIRUBIN,TOTAL 0.2 MG/DL (0.2-1.0); BLOOD UREA NITROGEN 8 MG/DL (7-18); CARBON DIOXIDE LEVEL 27 MEQ/L (21-32); CHLORIDE LEVEL 109 MEQ/L (98-107); CREATININE FOR GFR 0.87 MG/DL (0.70-1.30); GLOMERULAR FILTRATION RATE > 60.0 (>60); GLUCOSE, FASTING 82 MG/DL (70-100); POTASSIUM SERUM 4.6 MEQ/L (3.5-5.1); SODIUM LEVEL 142 MEQ/L (136-145); TRIGLYCERIDES LEVEL 96 MG/DL (<150)
[2021-04-05 16:16] LABS: ALBUMIN 3.5 GM/DL (3.2-5.2); CHOLESTEROL LEVEL 175 MG/DL (<200); HDL CHOLESTEROL 54 MG/DL (>40); LDL CHOLESTEROL 102 MG/DL (<100); NON-HDL-C 121 MG/DL; TOTAL PROTEIN 7.5 GM/DL (6.4-8.2)
[2021-04-05 16:18] LABS: TOTAL 25(OH) VITAMIN D 35.3 NG/ML (30.0-100.0)
== END ==
LOC: M PLALAB 14:23
PROVIDERS: ATTEND Nurse Practitioner Family
DX: E78.2 Mixed hyperlipidemia (principal); E55.9 Vitamin D deficiency, unspecified

== ENCOUNTER 2021-05-28 12:37 | Outpatient (CLI) | payer OTHER ==
[~2021-05-28] VITALS: Ht 170.2 cm; Wt 64.0 kg
[2021-05-28] MEDS ORDERED: ACETAMINOPHEN 650MG PO PRIOR TO INFUSION PO ONE (13:00)
[2021-05-28] MEDS ORDERED: NS 1,000 ML IV SCH (13:00)
[2021-05-28] MEDS ORDERED: diphenhydrAMINE 25MG PO PRIOR TO INFUSION PO ONE (13:00)
[2021-05-28] MEDS ORDERED: INFLIXIMAB BIOSIMILAR 400 MG in NS 210 ML IV ONE (13:00)
[2021-05-28 13:25] VITALS: BP 128/76
[2021-05-28 13:35] VITALS: BP 116/77
[2021-05-28 14:20] VITALS: BP 131/78
== END 2021-05-28 14:35 | disposition home or self-care (01) ==
LOC: M INFU 12:37
PROVIDERS: ATTEND Internal Medicine Gastroenterology
DX: K50.90 Crohn's disease, unspecified, without complications (principal); Z88.5 Allergy status to narcotic agent
CPT/HCPCS: 96365; Q5103

== ENCOUNTER → 2021-07-16 | Outpatient (CLI) | payer OTHER ==
[2021-07-16 17:53] LABS: BASO % 0.3 % (0.0-1.0); EOS # 0.2 10^3/uL (0.0-0.5); EOS % 1.7 % (0.0-3.0); HEMATOCRIT 47.6 % (42.0-52.0); HEMOGLOBIN 16.3 g/dl (13.5-17.5); LYMPH # 2.9 10^3/uL (1.5-5.0); MEAN CORPUSCULAR HEMOGLOBIN 32.7 pg (27.0-33.0); MEAN CORPUSCULAR HGB CONC 34.2 g/dl (32.0-36.5); MEAN CORPUSCULAR VOLUME 95.4 fl (80.0-96.0); MONO # 0.9 10^3/uL (0.0-0.8); MONO % 8.8 % (2.0-8.0); NEUTROPHILS # 6.3 10^3/uL (1.5-8.5); NEUTROPHILS % 60.8 % (36.0-66.0); PLATELET COUNT, AUTOMATED 432 10^3/uL (150-450); RED BLOOD COUNT 4.99 10^6/uL (4.30-6.10); WHITE BLOOD COUNT 10.3 10^3/uL (4.0-10.0)
[2021-07-16 18:18] LABS: ALBUMIN 3.6 GM/DL (3.2-5.2); ALT/SGPT 43 U/L (12-78); BILIRUBIN,TOTAL 0.4 MG/DL (0.2-1.0); BLOOD UREA NITROGEN 12 MG/DL (7-18); C REACTIVE PROTEIN QUANTITATIV 0.49 MG/DL (0.00-0.30); CALCIUM LEVEL 9.4 MG/DL (8.5-10.1); CARBON DIOXIDE LEVEL 26 MEQ/L (21-32); CHLORIDE LEVEL 107 MEQ/L (98-107); CREATININE FOR GFR 0.96 MG/DL (0.70-1.30); GLOMERULAR FILTRATION RATE > 60.0 (>60); GLUCOSE, FASTING 76 MG/DL (70-100); POTASSIUM SERUM 4.4 MEQ/L (3.5-5.1); SODIUM LEVEL 138 MEQ/L (136-145); TOTAL PROTEIN 7.7 GM/DL (6.4-8.2)
== END ==
LOC: M PLALAB 14:00
PROVIDERS: ATTEND Internal Medicine Gastroenterology
DX: K50.80 Crohn's disease of both small and large intestine without complications (principal)

== ENCOUNTER 2021-07-23 13:08 | Outpatient (CLI) | payer OTHER ==
[~2021-07-23] VITALS: Ht 170.2 cm; Wt 64.0 kg
[~2021-07-23 13:08] MED LIST changes: +ACETAMINOPHEN 650MG PO PRIOR TO INFUSION PO ONE; +INFLIXIMAB BIOSIMILAR 400 MG in NS 210 ML IV ONE; +NS 1,000 ML IV SCH; +diphenhydrAMINE 25MG PO PRIOR TO INFUSION PO ONE
[2021-07-23 13:23] VITALS: BP 138/82
[2021-07-23 14:15] VITALS: BP 131/72
[2021-07-23 14:30] VITALS: BP 141/76
[2021-07-23 15:03] VITALS: BP 132/79
[2021-07-23 15:27] VITALS: BP 137/76
[2021-07-23 16:01] VITALS: BP 127/79
== END 2021-07-23 16:08 | disposition home or self-care (01) ==
LOC: M INFU 13:08
PROVIDERS: ATTEND Internal Medicine Gastroenterology
DX: K50.90 Crohn's disease, unspecified, without complications (principal); Z88.6 Allergy status to analgesic agent
CPT/HCPCS: 96365; 96366; Q5103

== ENCOUNTER 2021-10-03 11:54 | Outpatient (CLI) | payer OTHER ==
[~2021-10-03] VITALS: Ht 172.7 cm; Wt 64.0 kg
[2021-10-03] MEDS ORDERED: diphenhydrAMINE 25MG PO PRIOR TO INFUSION PO ONE (12:00)
[2021-10-03] MEDS ORDERED: INFLIXIMAB BIOSIMILAR 400 MG in NS 210 ML IV ONE (12:00)
[2021-10-03] MEDS ORDERED: ACETAMINOPHEN 650MG PO PRIOR TO INFUSION PO ONE (12:00)
[2021-10-03] MEDS ORDERED: NS 1,000 ML IV SCH (12:00)
[2021-10-03 12:07] VITALS: BP 126/65
[2021-10-03 13:00] VITALS: BP 120/75
[2021-10-03 13:15] VITALS: BP 117/76
[2021-10-03 13:30] VITALS: BP 120/72
[2021-10-03 14:15] VITALS: BP 130/68
[2021-10-03 14:40] VITALS: BP 122/68
== END 2021-10-03 14:50 | disposition home or self-care (01) ==
LOC: M INFU 11:54
PROVIDERS: ATTEND Internal Medicine Gastroenterology
DX: K50.90 Crohn's disease, unspecified, without complications (principal); Z88.6 Allergy status to analgesic agent
CPT/HCPCS: 96365; 96366; Q5103

== ENCOUNTER 2021-11-28 12:09 | Outpatient (CLI) | payer OTHER ==
[2021-11-28 12:10] VITALS: BP 134/86
[2021-11-28 14:30] VITALS: BP 125/78
[2021-11-28 14:57] VITALS: BP 126/84
[2021-11-28 15:00] VITALS: BP 126/84
[2021-11-28 15:30] VITALS: BP 118/86
== END 2021-11-28 15:30 | disposition home or self-care (01) ==
LOC: M INFU 12:09
PROVIDERS: ATTEND Internal Medicine Gastroenterology
DX: K50.90 Crohn's disease, unspecified, without complications (principal); Z88.6 Allergy status to analgesic agent
CPT/HCPCS: 96413; 96415; Q5103

== ENCOUNTER → 2022-02-14 | Outpatient (CLI) | payer OTHER ==
[~2022-02-14] MED LIST changes: -ACETAMINOPHEN 650MG PO PRIOR TO INFUSION PO ONE; -INFLIXIMAB BIOSIMILAR 400 MG in NS 210 ML IV ONE; -NS 1,000 ML IV SCH; -diphenhydrAMINE 25MG PO PRIOR TO INFUSION PO ONE
== END ==
LOC: M LABSMTC 09:12
PROVIDERS: ATTEND Anesthesiology
DX: Z01.812 Encounter for preprocedural laboratory examination (principal); Z20.822 Contact with and (suspected) exposure to COVID-19

== ENCOUNTER 2022-02-19 06:58 | Day surgery (SDC) | payer OTHER ==
[~2022-02-19] VITALS: Ht 177.8 cm; Wt 70.0 kg
[~2022-02-19 06:58] MED LIST changes: +LIDOCAINE 2% 100MG/5ML SDV (FOR ANES.) As Ordered ONE; +NS 1,000 ML IV ONE; +propofoL 200 MG/20 ML VIAL As Ordered ONE
[2022-02-19 08:55] VITALS: BP 111/66
== END 2022-02-19 08:54 | disposition home or self-care (01) ==
LOC: M OPP 06:58
PROVIDERS: ATTEND Internal Medicine Gastroenterology
DX: K63.3 Ulcer of intestine (principal); K64.0 First degree hemorrhoids; K50.90 Crohn's disease, unspecified, without complications; Z79.899 Other long term (current) drug therapy; Z88.5 Allergy status to narcotic agent; F17.210 Nicotine dependence, cigarettes, uncomplicated

== ENCOUNTER 2022-03-20 12:26 | Outpatient (CLI) | payer OTHER ==
[~2022-03-20] VITALS: Ht 170.2 cm; Wt 64.0 kg
[~2022-03-20 12:26] MED LIST changes: +ACETAMINOPHEN 650MG PO PRIOR TO INFUSION PO ONE; +INFLIXIMAB BIOSIMILAR 400 MG in NS 210 ML IV ONE; -LIDOCAINE 2% 100MG/5ML SDV (FOR ANES.) As Ordered ONE; -NS 1,000 ML IV ONE; +NS 1,000 ML IV SCH; +diphenhydrAMINE 25MG PO PRIOR TO INFUSION PO ONE; -propofoL 200 MG/20 ML VIAL As Ordered ONE
[2022-03-20 12:41] VITALS: BP 134/82
[2022-03-20 13:45] VITALS: BP 130/88
[2022-03-20 15:35] VITALS: BP 129/86
== END 2022-03-20 15:35 | disposition home or self-care (01) ==
LOC: M INFU 12:26
PROVIDERS: ATTEND Internal Medicine Gastroenterology
DX: K50.80 Crohn's disease of both small and large intestine without complications (principal); Z88.5 Allergy status to narcotic agent; Z91.89 Other specified personal risk factors, not elsewhere classified
CPT/HCPCS: 96413; 96415; Q5103

== ENCOUNTER 2022-05-15 11:50 | Outpatient (CLI) | payer OTHER ==
[~2022-05-15 11:50] MED LIST changes: -ACETAMINOPHEN 650MG PO PRIOR TO INFUSION PO ONE; -INFLIXIMAB BIOSIMILAR 400 MG in NS 210 ML IV ONE; -NS 1,000 ML IV SCH; -diphenhydrAMINE 25MG PO PRIOR TO INFUSION PO ONE
[2022-05-15] MEDS ORDERED: INFLIXIMAB BIOSIMILAR 400 MG in NS 210 ML IV ONE (12:00)
[2022-05-15] MEDS ORDERED: diphenhydrAMINE 25MG PO PRIOR TO INFUSION PO ONE (12:00)
[2022-05-15] MEDS ORDERED: ACETAMINOPHEN 650MG PO PRIOR TO INFUSION PO ONE (12:00)
[2022-05-15] MEDS ORDERED: NS 1,000 ML IV ONE (12:00)
[2022-05-15 12:03] VITALS: BP 127/71
[2022-05-15 12:45] VITALS: BP 115/66
[2022-05-15 13:45] VITALS: BP 117/73
[2022-05-15 14:20] VITALS: BP 117/61
== END 2022-05-15 14:25 | disposition home or self-care (01) ==
LOC: M INFU 11:50
PROVIDERS: ATTEND Internal Medicine Gastroenterology
DX: K50.80 Crohn's disease of both small and large intestine without complications (principal); Z88.5 Allergy status to narcotic agent
CPT/HCPCS: 96413; 96415; Q5103

== ENCOUNTER → 2022-05-27 | Outpatient (CLI) | payer OTHER | LOC: M PLALAB 09:39 | PROVIDERS: ATTEND Nurse Practitioner Family | DX: M47.27 Other spondylosis with radiculopathy, lumbosacral region (principal); M43.17 Spondylolisthesis, lumbosacral region ==

== ENCOUNTER 2022-06-30 21:29 | Observation (INO) | payer OTHER ==
[~2022-06-30] VITALS: Ht 165.1 cm; Wt 72.3 kg
[2022-06-30 22:39] LABS: BASO % 0.4 % (0.0-1.0); EOS # 0.2 10^3/uL (0.0-0.5); EOS % 2.3 % (0.0-3.0); HEMATOCRIT 43.8 % (42.0-52.0); HEMOGLOBIN 15.3 g/dl (13.5-17.5); LYMPH # 1.3 10^3/uL (1.5-5.0); LYMPH % 18.4 % (24.0-44.0); MEAN CORPUSCULAR HEMOGLOBIN 32.8 pg (27.0-33.0); MEAN CORPUSCULAR HGB CONC 34.9 g/dl (32.0-36.5); MEAN CORPUSCULAR VOLUME 93.8 fl (80.0-96.0); MONO # 0.9 10^3/uL (0.0-0.8); MONO % 12.6 % (2.0-8.0); NEUTROPHILS # 4.6 10^3/uL (1.5-8.5); PLATELET COUNT, AUTOMATED 313 10^3/uL (150-450); RED BLOOD COUNT 4.67 10^6/uL (4.30-6.10)
[2022-06-30 22:57] LABS: RSV AMPLIFICATION NEGATIVE (NEGATIVE)
[2022-06-30 23:26] LABS: ALBUMIN 2.9 GM/DL (3.2-5.2); ALT/SGPT 52 U/L (12-78); BILIRUBIN,DIRECT < 0.1 MG/DL (0.0-0.2); BILIRUBIN,TOTAL 0.2 MG/DL (0.2-1.0); BLOOD UREA NITROGEN 21 MG/DL (7-18); CALCIUM LEVEL 5.7 MG/DL (8.5-10.1); CARBON DIOXIDE LEVEL 19 MEQ/L (21-32); CHLORIDE LEVEL 112 MEQ/L (98-107); CREATININE FOR GFR 1.01 MG/DL (0.70-1.30); GLOMERULAR FILTRATION RATE > 60.0 (>60); GLUCOSE, FASTING 107 MG/DL (70-100); POTASSIUM SERUM 3.1 MEQ/L (3.5-5.1); SODIUM LEVEL 140 MEQ/L (136-145); TOTAL PROTEIN 6.1 GM/DL (6.4-8.2)
[2022-06-30 23:38] LABS: PHOSPHORUS LEVEL 1.5 MG/DL (2.5-4.9)
[2022-06-30] MEDS ORDERED: CALCIUM GLUCONATE 1,000 MG in D5W MINI-BAG PLUS 100 ML IV ONE (23:45)
[2022-07-01] MEDS ORDERED: VITMTA PO (00:49)
[2022-07-01] MEDS ORDERED: ALEV220T22 PO (00:49)
[2022-07-01] MEDS ORDERED: HOME MED LIST COMPLETE! XX SCH (00:50)
[2022-07-01] MEDS ORDERED: CALCIUM GLUCONATE 1,000 MG in D5W MINI-BAG PLUS 100 ML IV ONE (03:00)
[2022-07-01 06:26] VITALS: BP 121/69
[2022-07-01 06:48] LABS: BLOOD UREA NITROGEN 18 MG/DL (7-18); CALCIUM LEVEL 7.6 MG/DL (8.5-10.1); CARBON DIOXIDE LEVEL 23 MEQ/L (21-32); CHLORIDE LEVEL 106 MEQ/L (98-107); CREATININE FOR GFR 0.93 MG/DL (0.70-1.30); GLOMERULAR FILTRATION RATE > 60.0 (>60); GLUCOSE, FASTING 82 MG/DL (70-100); POTASSIUM SERUM 3.6 MEQ/L (3.5-5.1); SODIUM LEVEL 137 MEQ/L (136-145)
[2022-07-01] MEDS ORDERED: NEUTRA-PHOS 1.5 GM PACKET PO SCH (09:00)
[2022-07-01] MEDS ORDERED: INFLUENZA QUADRIVALENT PF VACCINE 0.5ML SYRINGE IM.IMMUN ONE (09:00)
[2022-07-01 09:16] LABS: TOTAL 25(OH) VITAMIN D 30.5 NG/ML (30.0-100.0)
[2022-07-01 13:04] VITALS: BP 113/72
[2022-07-01 13:19] LABS: CALCIUM LEVEL 8.1 MG/DL (8.5-10.1); PHOSPHORUS LEVEL 4.1 MG/DL (2.5-4.9)
[2022-07-01] MEDS ORDERED: CALC500C16 PO (13:39)
[2022-07-01] MEDS ORDERED: D-101000 PO (13:43)
[2022-07-01] MEDS ORDERED: NEUTPW PO (13:43)
[2022-07-01] MEDS ORDERED: PHOS1TAB3 PO (15:28)
== END 2022-07-01 15:50 | disposition home or self-care (01) ==
LOC: EDBD 21:29 → M ED 21:29 → EDSEX 21:29 → M ED INP 21:30 → ENRESERV 07-01 03:17 → M 4MAIN 07-01 06:26
PROVIDERS: ADMIT Internal Medicine; ATTEND Internal Medicine
DX: E83.51 Hypocalcemia (principal); E83.31 Familial hypophosphatemia; U07.1 COVID-19; E55.9 Vitamin D deficiency, unspecified; Z88.5 Allergy status to narcotic agent; E87.6 Hypokalemia; F17.210 Nicotine dependence, cigarettes, uncomplicated; Z23 Encounter for immunization
CPT/HCPCS: 36415; 71045; 80048; 80076; 82306; 82310; 82330; 83735; 84100; 85025; 87631; 90471; 90686; 93005; 93041; 94760; 96374; 96376; 99285; J0610

== ENCOUNTER → 2022-07-08 | Outpatient (CLI) | payer OTHER ==
[~2022-07-08] MED LIST changes: +ALEV220T22 PO; +CALC500C16 PO; +D-101000 PO; +NEUTPW PO; +PHOS1TAB3 PO; +VITMTA PO
[2022-07-08 18:57] LABS: ALBUMIN 3.7 GM/DL (3.2-5.2); ALT/SGPT 44 U/L (12-78); BILIRUBIN,TOTAL 0.5 MG/DL (0.2-1.0); BLOOD UREA NITROGEN 11 MG/DL (7-18); CARBON DIOXIDE LEVEL 24 MEQ/L (21-32); CHLORIDE LEVEL 109 MEQ/L (98-107); CHOLESTEROL LEVEL 129 MG/DL (<200); CHOLESTEROL RISK RATIO 3.071 (<5); CREATININE FOR GFR 0.87 MG/DL (0.70-1.30); GLOMERULAR FILTRATION RATE > 60.0 (>60); GLUCOSE, FASTING 86 MG/DL (70-100); HDL CHOLESTEROL 42 MG/DL (>40); LDL CHOLESTEROL 62 MG/DL (<100); NON-HDL-C 87 MG/DL; PHOSPHORUS LEVEL 3.3 MG/DL (2.5-4.9); POTASSIUM SERUM 4.5 MEQ/L (3.5-5.1); SODIUM LEVEL 139 MEQ/L (136-145); TRIGLYCERIDES LEVEL 123 MG/DL (<150)
== END ==
LOC: M PLALAB 14:29
PROVIDERS: ATTEND Nurse Practitioner Family
DX: E83.51 Hypocalcemia (principal); E78.2 Mixed hyperlipidemia; K50.90 Crohn's disease, unspecified, without complications; M54.2 Cervicalgia

== ENCOUNTER 2022-07-10 12:10 | Outpatient (CLI) | payer OTHER ==
[~2022-07-10 12:10] MED LIST changes: +ACETAMINOPHEN TAB 650MG DOSE (2X325MG) PO ONE; +INFLIXIMAB BIOSIMILAR 400 MG in NS 210 ML IV ONE; +NS 1,000 ML IV ONE; +diphenhydrAMINE 25MG CAP PO ONE
[2022-07-10 12:28] VITALS: BP 138/79
[2022-07-10 14:34] VITALS: BP 124/82
== END 2022-07-10 14:40 | disposition home or self-care (01) ==
LOC: M INFU 12:10
PROVIDERS: ATTEND Internal Medicine Gastroenterology
DX: K50.90 Crohn's disease, unspecified, without complications (principal); Z88.6 Allergy status to analgesic agent; Z91.048 Other nonmedicinal substance allergy status
CPT/HCPCS: 96413; 96415; Q5103

== ENCOUNTER 2022-08-12 12:59 | Outpatient (RCR) | payer OTHER ==
[~2022-08-12 12:59] MED LIST changes: -ACETAMINOPHEN TAB 650MG DOSE (2X325MG) PO ONE; -INFLIXIMAB BIOSIMILAR 400 MG in NS 210 ML IV ONE; -NS 1,000 ML IV ONE; -diphenhydrAMINE 25MG CAP PO ONE
== END 2022-08-13 ==
LOC: M PT 12:59
PROVIDERS: ATTEND Nurse Practitioner Family
DX: M54.2 Cervicalgia (principal)

== ENCOUNTER 2022-09-04 12:00 | Outpatient (CLI) | payer OTHER ==
[~2022-09-04] VITALS: Ht 167.6 cm; Wt 64.0 kg
[~2022-09-04 12:00] MED LIST changes: +ACETAMINOPHEN TAB 650MG DOSE (2X325MG) PO ONE; +INFLIXIMAB BIOSIMILAR 400 MG in NS 210 ML IV ONE; +NS 1,000 ML IV ONE; +diphenhydrAMINE 25MG CAP PO ONE
[2022-09-04 12:05] VITALS: BP 138/88
[2022-09-04 13:20] VITALS: BP 140/86
[2022-09-04 14:30] VITALS: BP 139/85
== END 2022-09-04 14:40 | disposition home or self-care (01) ==
LOC: M INFU 12:00
PROVIDERS: ATTEND Internal Medicine Gastroenterology
DX: K50.80 Crohn's disease of both small and large intestine without complications (principal); Z88.5 Allergy status to narcotic agent
CPT/HCPCS: 96413; 96415; Q5103

== ENCOUNTER 2022-10-30 12:12 | Outpatient (CLI) | payer OTHER ==
[~2022-10-30] VITALS: Ht 167.6 cm; Wt 64.0 kg
[~2022-10-30 12:12] MED LIST changes: +ACETAMINOPHEN 650MG PO PRIOR TO INFUSION PO ONE; -ACETAMINOPHEN TAB 650MG DOSE (2X325MG) PO ONE; -NS 1,000 ML IV ONE; +NS 1,000 ML IV SCH; -diphenhydrAMINE 25MG CAP PO ONE; +diphenhydrAMINE 25MG PO PRIOR TO INFUSION PO ONE
[2022-10-30 12:15] VITALS: BP 140/80
[2022-10-30 13:00] VITALS: BP 132/72
[2022-10-30 14:50] VITALS: BP 131/67
== END 2022-10-30 14:45 | disposition home or self-care (01) ==
LOC: M INFU 12:12
PROVIDERS: ATTEND Internal Medicine Gastroenterology
DX: K50.80 Crohn's disease of both small and large intestine without complications (principal); Z88.5 Allergy status to narcotic agent
CPT/HCPCS: 96413; 96415; Q5103

== ENCOUNTER 2022-12-25 12:10 | Outpatient (CLI) | payer OTHER ==
[~2022-12-25] VITALS: Ht 172.7 cm; Wt 70.5 kg
[2022-12-25 12:10] VITALS: BP 132/94
[2022-12-25 15:00] VITALS: BP 132/81
== END 2022-12-25 15:00 ==
LOC: M INFU 12:10
PROVIDERS: ATTEND Internal Medicine Gastroenterology
DX: K50.00 Crohn's disease of small intestine without complications (principal); Z88.5 Allergy status to narcotic agent
CPT/HCPCS: 96413; 96415; Q5103

== ENCOUNTER 2023-04-16 12:00 | Outpatient (CLI) | payer OTHER ==
[~2023-04-16 12:00] MED LIST changes: -ACETAMINOPHEN 650MG PO PRIOR TO INFUSION PO ONE; -INFLIXIMAB BIOSIMILAR 400 MG in NS 210 ML IV ONE; -NS 1,000 ML IV SCH; -diphenhydrAMINE 25MG PO PRIOR TO INFUSION PO ONE
[2023-04-16 12:01] VITALS: BP 139/84; TEMP 97; O2SAT 97
[2023-04-16] MEDS ORDERED: diphenhydrAMINE 25MG PO PRIOR TO INFUSION PO ONE (12:15)
[2023-04-16] MEDS ORDERED: INFLIXIMAB BIOSIMILAR 400 MG in NS 210 ML IV ONE (12:15)
[2023-04-16] MEDS ORDERED: ACETAMINOPHEN 650MG PO PRIOR TO INFUSION PO ONE (12:15)
[2023-04-16] MEDS ORDERED: NS 1,000 ML IV SCH (12:15)
[2023-04-16 15:15] VITALS: BP 125/75; O2SAT 97
== END 2023-04-16 15:15 | disposition home or self-care (01) ==
LOC: M INFU 12:00
PROVIDERS: ATTEND Internal Medicine Gastroenterology
DX: K50.80 Crohn's disease of both small and large intestine without complications (principal); Z88.5 Allergy status to narcotic agent
CPT/HCPCS: 96413; 96415; Q5103

== ENCOUNTER 2023-05-09 06:29 | Emergency (ER) | payer OTHER ==
[~2023-05-09] VITALS: Ht 177.8 cm; Wt 70.5 kg
[2023-05-09] MEDS ORDERED: KETOROLAC 60MG 2ML VIAL IM ONE (07:20)
[2023-05-09] MEDS ORDERED: TRAM50TA2 PO (08:40)
[2023-05-09 09:01] VITALS: BP 131/82; TEMP 98.9; O2SAT 96
== END 2023-05-09 09:02 | disposition home or self-care (01) ==
LOC: M ED 06:29
DX: S52.572A Other intraarticular fracture of lower end of left radius, initial encounter for closed fracture (principal); W01.0XXA Fall on same level from slipping, tripping and stumbling without subsequent striking against object, initial encounter; Y92.009 Unspecified place in unspecified non-institutional (private) residence as the place of occurrence of the external cause; F17.200 Nicotine dependence, unspecified, uncomplicated; Z88.5 Allergy status to narcotic agent
CPT/HCPCS: 29125; 73110; 73200; 96372; 99283; J1885

== ENCOUNTER 2023-05-13 09:54 | Day surgery (SDC) | payer OTHER ==
[~2023-05-13] VITALS: Ht 170.2 cm; Wt 70.8 kg
[~2023-05-13 09:54] MED LIST changes: +TRAM50TA2 PO; +ceFAZolin SOD 2 GM in IV 1 EA IV ONE
[2023-05-13] MEDS ORDERED: dexAMETHasone 10MG/1ML VIAL PRES.FREE PN ONE (10:55)
[2023-05-13] MEDS ORDERED: LIDOCAINE 1% SDV 5ML VIAL PN ONE (10:55)
[2023-05-13] MEDS ORDERED: fentaNYL 100 MCG/2 ML INJECTION IV PRN ×2 (10:55→13:00)
[2023-05-13] MEDS ORDERED: ROPIvacaine 0.5% 30ML VIAL PN ONE (10:55)
[2023-05-13] MEDS ORDERED: BACITRACIN OINTMENT 30GM TUBE As Ordered ONE (10:56)
[2023-05-13] MEDS: MIDAZOLAM INJ 2MG/2ML VIAL IV PRN ×2 (11:09→11:13)
[2023-05-13] MEDS ORDERED: ACETAMINOPHEN 1000MG 100ML IV BAG As Ordered ONE (12:09)
[2023-05-13] MEDS ORDERED: propofoL 200 MG/20 ML VIAL As Ordered ONE (12:09)
[2023-05-13] MEDS ORDERED: MIDAZOLAM INJ 2MG/2ML VIAL As Ordered ONE (12:09)
[2023-05-13] MEDS ORDERED: LIDOCAINE 2% 100MG/5ML SDV (FOR ANES.) As Ordered ONE (12:09)
[2023-05-13] MEDS ORDERED: fentaNYL 100 MCG/2 ML INJECTION As Ordered ONE (12:09)
[2023-05-13] MEDS ORDERED: ONDANSETRON 4MG 2ML VIAL As Ordered ONE (12:09)
[2023-05-13] MEDS ORDERED: ePHEDrine SULFATE 25 MG/5 ML(5MG/ML) SYRINGE As Ordered ONE (12:09)
[2023-05-13] MEDS ORDERED: KETOROLAC 60MG 2ML VIAL As Ordered ONE (12:29)
[2023-05-13] MEDS ORDERED: HYDROMORPHONE HCL 0.5 MG/ 0.5 ML SYRINGE IV PRN (13:00)
[2023-05-13] MEDS ORDERED: oxyCODONE 5MG TAB PO PRN (13:00)
[2023-05-13] MEDS ORDERED: LR 1,000 ML IV SCH (13:00)
[2023-05-13] MEDS ORDERED: ONDANSETRON 4MG 2ML VIAL IV PRN (13:00)
[2023-05-13] MEDS ORDERED: PERC5TAB12 PO (13:58)
[2023-05-13 15:04] VITALS: BP 114/71; TEMP 96.6; O2SAT 96
== END 2023-05-13 15:04 | disposition home or self-care (01) ==
LOC: M SDC 09:54
PROVIDERS: ATTEND Orthopaedic Surgery Hand Surgery
DX: S52.552A Other extraarticular fracture of lower end of left radius, initial encounter for closed fracture (principal); W19.XXXA Unspecified fall, initial encounter; Y92.89 Other specified places as the place of occurrence of the external cause; Y93.9 Activity, unspecified; Y99.9 Unspecified external cause status; K50.90 Crohn's disease, unspecified, without complications; J45.909 Unspecified asthma, uncomplicated; Z79.899 Other long term (current) drug therapy; F17.210 Nicotine dependence, cigarettes, uncomplicated; Z88.5 Allergy status to narcotic agent
CPT/HCPCS: 25607; 64415; 76000; C1713; J0131; J0665; J0690; J1100; J1885; J2250; J2405; J2795; J3010

== ENCOUNTER → 2023-05-22 | Outpatient (CLI) | payer OTHER ==
[~2023-05-22] MED LIST changes: +PERC5TAB12 PO; -ceFAZolin SOD 2 GM in IV 1 EA IV ONE
== END ==
LOC: M SOG 08:04
PROVIDERS: ATTEND Physician Assistant
DX: S52.502D Unspecified fracture of the lower end of left radius, subsequent encounter for closed fracture with routine healing (principal); X58.XXXD Exposure to other specified factors, subsequent encounter

== ENCOUNTER → 2023-06-22 | Outpatient (CLI) | payer OTHER | LOC: M SOG 08:06 | PROVIDERS: ATTEND Physician Assistant | DX: S52.502D Unspecified fracture of the lower end of left radius, subsequent encounter for closed fracture with routine healing (principal) ==

== ENCOUNTER 2023-07-01 11:38 | Day surgery (SDC) | payer OTHER ==
[~2023-07-01] VITALS: Ht 167.6 cm; Wt 72.1 kg
[~2023-07-01 11:38] MED LIST changes: +LIDOCAINE 1% SDV 30ML VIAL XX ONE; +LR 1,000 ML IV SCH; +SODIUM BICARBONATE 8.4% INJ 50MEQ 50ML VIAL XX ONE
[2023-07-01] MEDS ORDERED: BACITRACIN OINTMENT 30GM TUBE As Ordered ONE (14:50)
[2023-07-01 15:01] VITALS: BP 122/82; TEMP 98.1; O2SAT 97
[2023-07-01] MEDS ORDERED: PERC5TAB12 PO (15:05)
== END 2023-07-01 15:16 | disposition home or self-care (01) ==
LOC: M SDC 11:38
PROVIDERS: ATTEND Orthopaedic Surgery Hand Surgery
DX: S62.632A Displaced fracture of distal phalanx of right middle finger, initial encounter for closed fracture (principal); W23.0XXA Caught, crushed, jammed, or pinched between moving objects, initial encounter; K50.90 Crohn's disease, unspecified, without complications; Z79.899 Other long term (current) drug therapy; Z88.5 Allergy status to narcotic agent; F17.218 Nicotine dependence, cigarettes, with other nicotine-induced disorders; Y99.8 Other external cause status; Y93.89 Activity, other specified
CPT/HCPCS: 26727; 76000; J0665

== ENCOUNTER → 2023-07-10 | Outpatient (CLI) | payer OTHER ==
[~2023-07-10] MED LIST changes: -LIDOCAINE 1% SDV 30ML VIAL XX ONE; -LR 1,000 ML IV SCH; -SODIUM BICARBONATE 8.4% INJ 50MEQ 50ML VIAL XX ONE
== END ==
LOC: M SOG 07:57
PROVIDERS: ATTEND Physician Assistant
DX: S62.632D Displaced fracture of distal phalanx of right middle finger, subsequent encounter for fracture with routine healing (principal); M79.89 Other specified soft tissue disorders

== ENCOUNTER → 2023-07-20 | Outpatient (CLI) | payer OTHER | LOC: M SOG 14:08 | PROVIDERS: ATTEND Physician Assistant | DX: S62.632D Displaced fracture of distal phalanx of right middle finger, subsequent encounter for fracture with routine healing (principal); S52.502D Unspecified fracture of the lower end of left radius, subsequent encounter for closed fracture with routine healing ==

== ENCOUNTER → 2023-08-11 | Outpatient (CLI) | payer OTHER | LOC: M SOG 07:57 | PROVIDERS: ATTEND Physician Assistant | DX: S52.502D Unspecified fracture of the lower end of left radius, subsequent encounter for closed fracture with routine healing (principal); S62.632D Displaced fracture of distal phalanx of right middle finger, subsequent encounter for fracture with routine healing ==

== ENCOUNTER 2023-08-13 13:00 | Outpatient (CLI) | payer OTHER ==
[~2023-08-13] VITALS: Ht 172.7 cm; Wt 70.5 kg
[~2023-08-13 13:00] MED LIST changes: +ACETAMINOPHEN TAB 650MG DOSE (2X325MG) PO ONE; +INFLIXIMAB BIOSIMILAR 400 MG in NS 210 ML IV ONE; +NS 1,000 ML IV SCH; +diphenhydrAMINE 25MG CAP PO ONE
[2023-08-13 13:31] VITALS: BP 124/82; TEMP 97.7; O2SAT 100
[2023-08-13 15:08] VITALS: BP 132/80; TEMP 97.7; O2SAT 98
== END 2023-08-13 15:10 | disposition home or self-care (01) ==
LOC: M INFU 13:00
PROVIDERS: ATTEND Internal Medicine Gastroenterology
DX: K50.80 Crohn's disease of both small and large intestine without complications (principal); Z88.5 Allergy status to narcotic agent
CPT/HCPCS: 96413; 96415; Q5103

== ENCOUNTER 2023-10-08 12:00 | Outpatient (CLI) | payer OTHER ==
[~2023-10-08] VITALS: Ht 167.6 cm; Wt 68.0 kg
[~2023-10-08 12:00] MED LIST changes: -ACETAMINOPHEN TAB 650MG DOSE (2X325MG) PO ONE; -INFLIXIMAB BIOSIMILAR 400 MG in NS 210 ML IV ONE; -NS 1,000 ML IV SCH; -diphenhydrAMINE 25MG CAP PO ONE
[2023-10-08 12:10] VITALS: BP 138/76; O2SAT 98
[2023-10-08] MEDS ORDERED: INFLIXIMAB BIOSIMILAR 400 MG in NS 210 ML IV ONE (12:25)
[2023-10-08] MEDS ORDERED: diphenhydrAMINE 25MG PO PRIOR TO INFUSION PO ONE (12:25)
[2023-10-08] MEDS ORDERED: ACETAMINOPHEN 650MG PO PRIOR TO INFUSION PO ONE (12:25)
[2023-10-08] MEDS ORDERED: NS 1,000 ML IV SCH (12:25)
[2023-10-08 15:00] VITALS: BP 121/83; O2SAT 100
== END 2023-10-08 15:00 | disposition home or self-care (01) ==
LOC: M INFU 12:00
PROVIDERS: ATTEND Internal Medicine Gastroenterology
DX: K50.80 Crohn's disease of both small and large intestine without complications (principal); Z88.5 Allergy status to narcotic agent
CPT/HCPCS: 96413; 96415; Q5103

== ENCOUNTER 2023-12-03 12:00 | Outpatient (CLI) | payer OTHER ==
[~2023-12-03] VITALS: Ht 172.7 cm; Wt 73.0 kg
[~2023-12-03 12:00] MED LIST changes: +NS 1,000 ML IV SCH
[2023-12-03] MEDS: diphenhydrAMINE 25MG PO PRIOR TO INFUSION PO ONE (12:11)
[2023-12-03] MEDS: ACETAMINOPHEN 650MG PO PRIOR TO INFUSION PO ONE (12:12)
[2023-12-03 12:26] VITALS: BP 140/95; TEMP 98.3; O2SAT 98
[2023-12-03] MEDS: INFLIXIMAB BIOSIMILAR 400 MG in NS 210 ML IV ONE (12:37)
[2023-12-03 14:52] VITALS: BP 139/85; O2SAT 98
[2023-12-03] MEDS ORDERED: MELO7.5T35 PO (17:21)
== END 2023-12-03 14:55 ==
LOC: M INFU 12:00
PROVIDERS: ATTEND Internal Medicine Gastroenterology
DX: K50.819 Crohn's disease of both small and large intestine with unspecified complications (principal); Z88.5 Allergy status to narcotic agent; Z91.89 Other specified personal risk factors, not elsewhere classified
CPT/HCPCS: 96413; 96415; Q5103

== ENCOUNTER 2023-12-03 15:02 | Emergency (ER) | payer OTHER ==
[~2023-12-03] VITALS: Ht 172.7 cm; Wt 74.2 kg
[~2023-12-03 15:02] MED LIST changes: -NS 1,000 ML IV SCH
[2023-12-03] MEDS ORDERED: KETOROLAC 30 MG/ML 1ML VIAL IV ONE (15:55)
[2023-12-03] MEDS: LIDOCAINE 5% (LIDODERM) PATCH TD ONE (16:20)
[2023-12-03] MEDS: KETOROLAC 30 MG/ML 1ML VIAL IM ONE (16:40)
[2023-12-03] MEDS ORDERED: MELO7.5T35 PO (17:21)
[2023-12-03 17:27] VITALS: BP 150/96; TEMP 97.7; O2SAT 99
== END 2023-12-03 17:30 | disposition home or self-care (01) ==
LOC: M ED 15:02
DX: M79.602 Pain in left arm (principal); K50.90 Crohn's disease, unspecified, without complications; F17.200 Nicotine dependence, unspecified, uncomplicated; Z88.5 Allergy status to narcotic agent; Z88.8 Allergy status to other drugs, medicaments and biological substances
CPT/HCPCS: 72125; 96372; 96374; 99283; J1885

== ENCOUNTER → 2023-12-08 | Outpatient (CLI) | payer OTHER ==
[~2023-12-08] MED LIST changes: +MELO7.5T35 PO
[2023-12-08 15:28] LABS: BASO % 0.2 % (0.0-1.0); EOS # 0.2 10^3/uL (0.0-0.5); EOS % 2.2 % (0.0-3.0); HEMATOCRIT 47.9 % (42.0-52.0); HEMOGLOBIN 16.3 g/dl (13.5-17.5); LYMPH % 28.2 % (24.0-44.0); MEAN CORPUSCULAR HEMOGLOBIN 32.4 pg (27.0-33.0); MEAN CORPUSCULAR VOLUME 95.2 fl (80.0-96.0); MONO # 0.9 10^3/uL (0.0-0.8); MONO % 8.6 % (2.0-8.0); NEUTROPHILS # 6.4 10^3/uL (1.5-8.5); NEUTROPHILS % 60.2 % (36.0-66.0); PLATELET COUNT, AUTOMATED 451 10^3/uL (150-450); RED BLOOD COUNT 5.03 10^6/uL (4.30-6.10); WHITE BLOOD COUNT 10.6 10^3/uL (4.0-10.0)
[2023-12-08 15:57] LABS: ALBUMIN 3.5 G/DL (3.2-5.2); ALKALINE PHOSPHATASE 120 U/L (46-116); ALT/SGPT 37 U/L (7.0-40); AST/SGOT 21 U/L (<34); BILIRUBIN,TOTAL 0.3 MG/DL (0.3-1.2); BLOOD UREA NITROGEN 16 MG/DL (9-23); CARBON DIOXIDE LEVEL 26 MMOL/L (20-31); CHLORIDE LEVEL 110 MMOL/L (98-107); CHOLESTEROL LEVEL 185 MG/DL (<200); CREATININE FOR GFR 0.95 MG/DL (0.70-1.30); GLOMERULAR FILTRATION RATE > 60.0 (>60); GLUCOSE, FASTING 91 MG/DL (60-100); LDL CHOLESTEROL 84.6 MG/DL (<100); POTASSIUM SERUM 4.4 MMOL/L (3.5-5.1); SODIUM LEVEL 140 MMOL/L (136-145); TOTAL PROTEIN 7.3 G/DL (5.7-8.2); TRIGLYCERIDES LEVEL 222 MG/DL (<150)
[2023-12-08 16:00] LABS: TOTAL 25(OH) VITAMIN D 21.6 NG/ML (20.0-100.0)
[2023-12-09 16:06] LABS: CALCIUM LEVEL 9.8 MG/DL (8.5-10.1)
== END ==
LOC: M PLALAB 13:40
PROVIDERS: ATTEND Nurse Practitioner Family
DX: Z00.00 Encounter for general adult medical examination without abnormal findings (principal); E78.2 Mixed hyperlipidemia; E55.9 Vitamin D deficiency, unspecified

== ENCOUNTER 2024-01-28 12:05 | Outpatient (CLI) | payer OTHER ==
[~2024-01-28] VITALS: Ht 172.7 cm; Wt 72.7 kg
[~2024-01-28 12:05] MED LIST changes: +NS 1,000 ML IV SCH
[2024-01-28 12:15] VITALS: BP 125/82; O2SAT 98
[2024-01-28] MEDS: diphenhydrAMINE 25MG CAP PO ONE (12:15)
[2024-01-28] MEDS: ACETAMINOPHEN TAB 650MG DOSE (2X325MG) PO ONE (12:15)
[2024-01-28] MEDS: INFLIXIMAB BIOSIMILAR 400 MG in NS 210 ML IV ONE (12:35)
== END 2024-01-28 14:45 | disposition home or self-care (01) ==
LOC: M INFU 12:05
PROVIDERS: ATTEND Internal Medicine Gastroenterology
DX: K50.819 Crohn's disease of both small and large intestine with unspecified complications (principal); Z88.5 Allergy status to narcotic agent
CPT/HCPCS: 96413; 96415; Q5103

== ENCOUNTER 2024-03-24 12:04 | Outpatient (CLI) | payer OTHER ==
[~2024-03-24] VITALS: Ht 172.7 cm; Wt 70.0 kg
[2024-03-24 12:05] VITALS: BP 136/91; O2SAT 96
[2024-03-24] MEDS: ACETAMINOPHEN 650MG PO PRIOR TO INFUSION PO ONE (12:22)
[2024-03-24] MEDS: diphenhydrAMINE 25MG PO PRIOR TO INFUSION PO ONE (12:22)
[2024-03-24] MEDS: INFLIXIMAB BIOSIMILAR 400 MG in NS 210 ML IV ONE (13:01)
[2024-03-24 13:30] VITALS: BP 117/80; O2SAT 98
[2024-03-24 14:00] VITALS: BP 120/79; O2SAT 99
[2024-03-24 15:00] VITALS: BP 139/93; O2SAT 100
== END 2024-03-24 15:05 ==
LOC: M INFU 12:04
PROVIDERS: ATTEND Internal Medicine Gastroenterology
DX: K50.80 Crohn's disease of both small and large intestine without complications (principal); Z88.5 Allergy status to narcotic agent; Z91.89 Other specified personal risk factors, not elsewhere classified
CPT/HCPCS: 96413; 96415; Q5103

== ENCOUNTER 2024-05-19 12:05 | Outpatient (CLI) | payer OTHER ==
[~2024-05-19] VITALS: Ht 172.7 cm; Wt 77.5 kg
[2024-05-19 12:05] VITALS: BP 138/83; O2SAT 97
[2024-05-19] MEDS: diphenhydrAMINE 25MG PO PRIOR TO INFUSION PO ONE (12:20)
[2024-05-19] MEDS: ACETAMINOPHEN 650MG PO PRIOR TO INFUSION PO ONE (12:20)
[2024-05-19] MEDS: INFLIXIMAB BIOSIMILAR 400 MG in NS 210 ML IV ONE (12:51)
[2024-05-19 14:55] VITALS: BP 139/82; O2SAT 98
== END 2024-05-19 15:00 ==
LOC: M INFU 12:05
PROVIDERS: ATTEND Internal Medicine Gastroenterology
DX: K50.80 Crohn's disease of both small and large intestine without complications (principal); Z88.5 Allergy status to narcotic agent; Z91.89 Other specified personal risk factors, not elsewhere classified
CPT/HCPCS: 96413; 96415; Q5103

== ENCOUNTER 2024-07-14 12:15 | Outpatient (CLI) | payer OTHER ==
[~2024-07-14] VITALS: Ht 172.7 cm; Wt 69.0 kg
[~2024-07-14 12:15] MED LIST changes: +diphenhydrAMINE 25MG PO PRIOR TO INFUSION PO ONE
[2024-07-14] MEDS: ACETAMINOPHEN 650MG PO PRIOR TO INFUSION PO ONE (12:19)
[2024-07-14 12:20] VITALS: BP 133/93; O2SAT 95
[2024-07-14] MEDS: INFLIXIMAB BIOSIMILAR 400 MG in NS 210 ML IV ONE (12:52)
[2024-07-14 13:45] VITALS: BP 125/79; O2SAT 96
[2024-07-14 14:57] VITALS: BP 135/88; O2SAT 96
== END 2024-07-14 15:00 ==
LOC: M INFU 12:15
PROVIDERS: ATTEND Internal Medicine Gastroenterology
DX: K50.80 Crohn's disease of both small and large intestine without complications (principal); Z88.5 Allergy status to narcotic agent; Z91.89 Other specified personal risk factors, not elsewhere classified
CPT/HCPCS: 96413; 96415; Q5103

== ENCOUNTER 2024-09-08 11:45 | Outpatient (CLI) | payer OTHER ==
[~2024-09-08] VITALS: Ht 170.2 cm; Wt 70.5 kg
[~2024-09-08 11:45] MED LIST changes: -NS 1,000 ML IV SCH; -diphenhydrAMINE 25MG PO PRIOR TO INFUSION PO ONE
[2024-09-08 12:00] VITALS: BP 133/80; O2SAT 97
[2024-09-08] MEDS ORDERED: diphenhydrAMINE 25MG PO PRIOR TO INFUSION PO ONE (12:00)
[2024-09-08] MEDS ORDERED: ACETAMINOPHEN 650MG PO PRIOR TO INFUSION PO ONE (12:00)
[2024-09-08] MEDS ORDERED: NS (Normal Saline) 0.9% 1,000 ML IV SCH (12:00)
[2024-09-08] MEDS: INFLIXIMAB BIOSIMILAR 400 MG in NS 210 ML IV ONE (12:38)
[2024-09-08 13:00] VITALS: BP 130/76; O2SAT 98
[2024-09-08 13:30] VITALS: BP 119/78; O2SAT 100
[2024-09-08 14:51] VITALS: BP 126/82; O2SAT 98
== END 2024-09-08 14:50 | disposition home or self-care (01) ==
LOC: M INFU 11:45
PROVIDERS: ATTEND Internal Medicine Gastroenterology
DX: K50.80 Crohn's disease of both small and large intestine without complications (principal); Z88.5 Allergy status to narcotic agent
CPT/HCPCS: 96413; 96415; Q5103

== ENCOUNTER 2024-11-03 11:58 | Outpatient (CLI) | payer OTHER ==
[~2024-11-03] VITALS: Ht 172.7 cm; Wt 70.5 kg
[2024-11-03 12:00] VITALS: BP 139/80; O2SAT 98
[2024-11-03] MEDS ORDERED: NS (Normal Saline) 0.9% 1,000 ML IV SCH (12:00)
[2024-11-03] MEDS: ACETAMINOPHEN 650MG PO PRIOR TO INFUSION PO ONE (12:00)
[2024-11-03] MEDS: diphenhydrAMINE 25MG PO PRIOR TO INFUSION PO ONE (12:00)
[2024-11-03] MEDS: INFLIXIMAB BIOSIMILAR 400 MG in NS 210 ML IV ONE (12:55)
[2024-11-03 15:02] VITALS: BP 126/88; O2SAT 100
== END 2024-11-03 15:15 ==
LOC: M INFU 11:58
PROVIDERS: ATTEND Internal Medicine Gastroenterology
DX: K50.819 Crohn's disease of both small and large intestine with unspecified complications (principal); Z88.5 Allergy status to narcotic agent
CPT/HCPCS: 96413; 96415; Q5103

== ENCOUNTER → 2024-12-15 | Outpatient (CLI) | payer OTHER ==
[2024-12-15 16:33] LABS: BASO % 0.3 % (0.0-1.0); EOS # 0.3 10^3/uL (0.0-0.5); EOS % 3.3 % (0.0-3.0); HEMATOCRIT 47.3 % (42.0-52.0); HEMOGLOBIN 16.5 g/dl (13.5-17.5); LYMPH # 3.1 10^3/uL (1.5-5.0); LYMPH % 32.9 % (24.0-44.0); MEAN CORPUSCULAR HEMOGLOBIN 33.6 pg (27.0-33.0); MEAN CORPUSCULAR HGB CONC 34.9 g/dl (32.0-36.5); MEAN CORPUSCULAR VOLUME 96.3 fl (80.0-96.0); MONO # 0.8 10^3/uL (0.0-0.8); MONO % 8.8 % (2.0-8.0); NEUTROPHILS # 5.1 10^3/uL (1.5-8.5); NEUTROPHILS % 54.4 % (36.0-66.0); PLATELET COUNT, AUTOMATED 422 10^3/uL (150-450); RED BLOOD COUNT 4.91 10^6/uL (4.30-6.10); WHITE BLOOD COUNT 9.4 10^3/uL (4.0-10.0)
[2024-12-15 16:44] LABS: ALBUMIN 3.7 G/DL (3.2-5.2); ALKALINE PHOSPHATASE 98 U/L (40-129); ALT/SGPT 41 U/L (7.0-40); AST/SGOT 25 U/L (<34); BILIRUBIN,TOTAL 0.5 MG/DL (0.3-1.2); BLOOD UREA NITROGEN 12 MG/DL (9-23); CALCIUM LEVEL 9.2 MG/DL (8.5-10.1); CARBON DIOXIDE LEVEL 27 MMOL/L (20-31); CHLORIDE LEVEL 107 MMOL/L (98-107); CHOLESTEROL LEVEL 207 MG/DL (<200); CHOLESTEROL RISK RATIO 3.77 (<5); CREATININE FOR GFR 0.84 MG/DL (0.70-1.30); FREE T4 1.12 NG/DL (0.89-1.76); GLOMERULAR FILTRATION RATE > 60.0 (>60); GLUCOSE, FASTING 87 MG/DL (60-100); HDL CHOLESTEROL 54.9 MG/DL (>40); LDL CHOLESTEROL 108.7 MG/DL (<100); NON-HDL-C 152.1 MG/DL; POTASSIUM SERUM 4.4 MMOL/L (3.5-5.1); SODIUM LEVEL 140 MMOL/L (136-145); THYROID STIMULATING HORMONE 1.336 uIU/ML (0.55-4.78); TOTAL PROTEIN 7.3 G/DL (5.7-8.2); TRIGLYCERIDES LEVEL 217 MG/DL (<150)
[2024-12-15 16:46] LABS: VITAMIN B12 LEVEL 233 PG/ML (211-911)
== END ==
LOC: M PLALAB 13:12
PROVIDERS: ATTEND Nurse Practitioner Family
DX: Z00.00 Encounter for general adult medical examination without abnormal findings (principal); R53.83 Other fatigue; E55.9 Vitamin D deficiency, unspecified; E78.2 Mixed hyperlipidemia

== ENCOUNTER 2024-12-29 12:10 | Outpatient (CLI) | payer OTHER ==
[~2024-12-29] VITALS: Ht 172.7 cm; Wt 77.2 kg
[~2024-12-29 12:10] MED LIST changes: +NS (Normal Saline) 0.9% 1,000 ML IV SCH
[2024-12-29] MEDS: ACETAMINOPHEN 650MG PO PRIOR TO INFUSION PO ONE (12:13)
[2024-12-29] MEDS: diphenhydrAMINE 25MG PO PRIOR TO INFUSION PO ONE (12:13)
[2024-12-29] MEDS: INFLIXIMAB BIOSIMILAR 400 MG in NS 210 ML IV ONE (12:54)
[2024-12-29 12:55] VITALS: BP 127/76; TEMP 97.9; O2SAT 98
[2024-12-29 13:12] VITALS: BP 138/90; TEMP 98; O2SAT 98
[2024-12-29 14:00] VITALS: BP 139/85; O2SAT 98
== END 2024-12-29 14:00 | disposition home or self-care (01) ==
LOC: M INFU 12:10
PROVIDERS: ATTEND Internal Medicine Gastroenterology
DX: K50.819 Crohn's disease of both small and large intestine with unspecified complications (principal); Z88.5 Allergy status to narcotic agent
CPT/HCPCS: 96413; Q5103

== ENCOUNTER 2025-04-18 12:50 | Outpatient (CLI) | payer OTHER ==
[~2025-04-18] VITALS: Ht 172.7 cm; Wt 73.0 kg
[~2025-04-18 12:50] MED LIST changes: -NS (Normal Saline) 0.9% 1,000 ML IV SCH
[2025-04-18 12:55] VITALS: BP 138/82; O2SAT 99
[2025-04-18] MEDS: GUSELKUMAB IV ONE (13:40)
[2025-04-18] MEDS: NS IV ONE (13:40)
== END 2025-04-18 15:20 ==
LOC: M INFU 12:50
PROVIDERS: ATTEND Internal Medicine Gastroenterology
DX: K50.80 Crohn's disease of both small and large intestine without complications (principal); Z88.5 Allergy status to narcotic agent
CPT/HCPCS: 96365; J1628

== ENCOUNTER 2025-05-16 12:57 | Outpatient (CLI) | payer OTHER ==
[~2025-05-16] VITALS: Ht 172.7 cm; Wt 75.0 kg
[2025-05-16] MEDS: NS IV ONE (13:28)
[2025-05-16] MEDS: GUSELKUMAB IV ONE (13:28)
[2025-05-16 14:25] VITALS: BP 143/87; O2SAT 97
== END 2025-05-16 14:30 ==
LOC: M INFU 12:57
PROVIDERS: ATTEND Internal Medicine Gastroenterology
DX: K50.80 Crohn's disease of both small and large intestine without complications (principal); Z88.5 Allergy status to narcotic agent
CPT/HCPCS: 96365; J1628

== ENCOUNTER 2025-06-13 12:50 | Outpatient (CLI) | payer OTHER ==
[~2025-06-13] VITALS: Ht 172.7 cm; Wt 72.7 kg
[2025-06-13 13:00] VITALS: BP 138/84; O2SAT 98
[2025-06-13] MEDS: NS IV ONE (13:32)
[2025-06-13] MEDS: GUSELKUMAB IV ONE (13:32)
[2025-06-13 14:40] VITALS: BP 132/83; O2SAT 99
== END 2025-06-13 14:39 ==
LOC: M INFU 12:50
PROVIDERS: ATTEND Internal Medicine Gastroenterology
DX: K50.80 Crohn's disease of both small and large intestine without complications (principal); Z88.5 Allergy status to narcotic agent; Z88.3 Allergy status to other anti-infective agents
CPT/HCPCS: 96365; J1628

== ENCOUNTER → 2025-08-14 | Outpatient (CLI) | payer OTHER ==
[2025-08-14 15:10] LABS: BASO # 0.0 10^3/uL (0.0-0.2); BASO % 0.4 % (0.0-1.0); EOS # 0.3 10^3/uL (0.0-0.5); EOS % 3.2 % (0.0-3.0); LYMPH # 2.2 10^3/uL (1.5-5.0); LYMPH % 25.3 % (24.0-44.0); MONO # 0.6 10^3/uL (0.0-0.8); MONO % 7.3 % (2.0-8.0); NEUTROPHILS # 5.4 10^3/uL (1.5-8.5); NEUTROPHILS % 63.4 % (36.0-66.0); PLATELET COUNT, AUTOMATED 440 10^3/uL (150-450)
[2025-08-14 15:41] LABS: ALT/SGPT 46 U/L (7.0-40); AST/SGOT 34 U/L (<34); CALCIUM LEVEL 9.1 MG/DL (8.5-10.1); CARBON DIOXIDE LEVEL 26 MMOL/L (20-31); CHLORIDE LEVEL 109 MMOL/L (98-107); CHOLESTEROL LEVEL 199 MG/DL (<200); CHOLESTEROL RISK RATIO 3.37 (<5); CREATININE FOR GFR 0.90 MG/DL (0.70-1.30); GLOMERULAR FILTRATION RATE > 90.0 (>60); IRON (FE) 207 UG/DL (65-175); LDL CHOLESTEROL 107.2 MG/DL (<100); NON-HDL-C 140.0 MG/DL; PERCENT SATURATION 59.7 % (19.7-50.0); POTASSIUM SERUM 4.4 MMOL/L (3.5-5.1); SODIUM LEVEL 140 MMOL/L (136-145); TRIGLYCERIDES LEVEL 164 MG/DL (<150)
[2025-08-14 15:43] LABS: TOTAL 25(OH) VITAMIN D 18.0 NG/ML (20.0-100.0); VITAMIN B12 LEVEL 268 PG/ML (211-911)
== END ==
LOC: M PLALAB 13:40
PROVIDERS: ATTEND Nurse Practitioner Family
DX: E53.8 Deficiency of other specified B group vitamins (principal); E55.9 Vitamin D deficiency, unspecified; E78.2 Mixed hyperlipidemia; K50.90 Crohn's disease, unspecified, without complications